=== PATIENT | male | born 1960 | race Caucasian/White ===

== ENCOUNTER → 2022-02-05 13:21 | Outpatient (CLI) | payer MEDICARE, OTHER, SELFPAY ==
--- NOTE | 2022-02-05 | CA_ITS ---
APPROVED REPORT EXAM: Comprehensive 2D, Doppler, and color-flow Echocardiogram Vamp Marker: Soheila Enriquez RT(R) Ht: 5 ft 5 in Wt: 370lbs BSA: 2.57 BP: 150/68 mmHg Indications: SOA, AFIB, CP, Obesity, edema, HTN, DM, fatigue, hyperlipidemia, ex smoker 2D Dimensions LVOT 2.42 cm (M/F) 1.5-2.5 LA Volume 107.80 mL LA Volume Index 41.94 mL/m2 (M/F) 16-34 M-Mode Dimensions RVDd 3.49 cm (0.9-2.6) LA Diam 6.22 cm (1.9-4.0) LVDd 5.21 cm (3.5-5.7) Ao Diam 3.35 cm (2.0-3.7) LVDs 3.79 cm (3.5-5.7) IVSd 0.93 cm (0.6-1.1) PWd 0.74 cm (0.6-1.1) EF (Teich) 52.70% FS 27.30% EDV (Teich) 130.10 mL ESV (Teich) 61.60 mL Aortic Valve AO VTI 64.01 (18-25 cm) Mitral Valve MV PHT 60.00 ms Tricuspid Valve TR P. Velocity 299.00 cm/s RAP Estimate 10.00 mmHg RVSP 45.70 mmHg Left Ventricle Left atrium is moderately enlarged, left ventricle is normal size mild concentric left ventricular hypertrophy, estimated ejection fraction 55% with no regional wall motion abnormality, diastolic parameters are inconclusive. Right Ventricle Right atrium and right ventricle are mildly enlarged with normal contractility. Aortic Valve Aortic valve is minimally thickened and calcified without aortic stenosis or aortic insufficiency. Mitral Valve Mitral valve has mitral annular calcification, there is no mitral stenosis, there is mild mitral regurgitation. Tricuspid Valve Tricuspid valve grossly normal, there is mild tricuspid regurgitation, tricuspid regurgitation jet velocity is inadequate for calculation of the right ventricular systolic pressure. Pulmonic Valve Pulmonic valve is poorly visualized. Great Vessels Aortic root is normal size. Inferior vena cava is poorly visualized. Pericardium No significant pericardial effusion noted. Conclusion 1. Moderately enlarged left atrium, normal left ventricular size, mild concentric left ventricular hypertrophy, estimated ejection fraction 55% with no regional wall motion abnormality, diastolic parameters are inconclusive. 2. Mildly enlarged right ventricle with normal contractility. 3. Mild mitral and tricuspid regurgitation. 4. No significant pericardial effusion noted. 5. Inferior vena cava is poorly visualized Electronically signed by : Ry Yung MD 02/06/2022 12:46:47
== END ==
PROVIDERS: PCP Internal Medicine Adolescent Medicine; Visit Provider Nurse Practitioner Family
DX: R06.02 Shortness of breath (principal)
CPT/HCPCS: 93306

== ENCOUNTER → 2022-02-27 06:51 | Outpatient (CLI) | payer MEDICARE, OTHER, SELFPAY ==
--- NOTE | 2022-02-27 06:52 | NM_ITS ---
APPROVED REPORT Exam: Nuclear Stress Test Indication: OBESITY, HTN, SOB, FATIGUE,EDEMA, C.P., ABN EKG Patient Location: Outpatient Stress Tech: Vianney JACKSON Tech:Yenny Vargas, JENNIFERT RT(R)(N) Ht: 5 ft 5 in Wt: 368 lbs HR: 51 bpm BP: 155/82 mmHg BSA: 2.56 m2 TID: 1.22 BMI: 61.2 History: OBESITY, HTN, SOB, FATIGUE,EDEMA, C.P., ABN EKG PT COULD NOT LAY ON STOMACH FOR PRONE IMAGES Procedure: Patient received a 0.4 mg of intravenous Lexiscan, resting heart rate 51 bpm, resting blood pressure 155/82 mmHg, with Lexiscan maximum heart rate achived was 62 bpm which is Less than 85 % of the maximum predicted heart rate and blood pressure was 130/59 mmHg. With Lexiscan, patient denied any complaint of chest pain. Electrocardiogram Resting electrocardiogram shows sinus rhythm nonspecific ST-T changes, with Lexiscan there is less than 1.[address] segment depression noted from the baseline EKG. The EKG portion of the Lexiscan is nondiagnostic. Cardiac Stress and Resting SPECT Images: Cardiac Stress and Resting SPECT images were obtained using technetium 99m Myoview 29.7 mCi stress and 10.67 mCi at rest. Gated SPECT analysis of segmental wall motion and calculation of the ejection fraction also done. Prone images were not obtained. Cardiac stress and rest SPECT images show uniform myocardial activity without segmental perfusion abnormality, computer derived ejection fraction is 52% with no regional wall motion abnormality, right ventricle is mildly enlarged with normal contractility. Conclusion: 1. The EKG portion of the Lexiscan is nondiagnostic. 2. No scintigraphic evidence of reversible ischemia seen, computer derived ejection fraction 52% with no regional wall motion abnormality, right ventricle is mildly enlarged with normal contractility. 3. Normal Lexiscan Myoview study. Electronically signed by : Ry Yung MD 02/27/2022 14:12:02
--- NOTE | 2022-02-27 06:52 | CA_ITS ---
APPROVED REPORT Exam: Pharmacologic Technologist: Vianney Berman, Ht: 4 ft 7 in Wt: 368 lbs BSA: 2.27 m2 HR: 51 bpm BP: 155/82 mmHg Medical History Medications: Levothyroxine,,,,, Metoprolol Tartrate,,,,, Pantoprazole,,,,, TAMSULOSIN,,,,, Vit C,,,,, ElIQUIS,,,,, AtorvaASTATIN,,,,, Potassium,,,,, Vit D2,,,,, Furosemide,,,,, Ferrous fumarate,,,,, Cardiac Risk Factors: FHX of CAD, Smoking Stress Test Details Test: LEXISCAN HR Resting HR: 51 bpm Max Heart Rate (APMHR): 159.365468 bpm Max HR Achieved: 80 bpm Target HR (85% APMHR): 135.804403 bpm % of APMHR: 50.31 Recovery HR: 62 bpm BP Resting BP: 155/82 mmHg Max BP: 155/82 mmHg Recovery BP: 130.0/59.0 mmHg ECG Clinical Exercise duration: 04:13 min Highest Stage Achieved: Stress ECG Conclusion During lexiscan pt experinced SOA. Occasional PAC/PVC. <1.5mm ST changes. Test Summary RECOVERY 02:00 . . 46 . . . . REST 06:41 . . 51 . 155/ 82 . . Stage 1 01:00 . . 60 . . . . Stage 2 01:00 . . 67 . . . . Stage 3 01:00 . . 46 . 138/ 59 . . Stage 4 01:00 . . 58 . . . . Stage 4 01:13 . . 50 . 136/ 61 . Stop exercise at 04:13 RECOVERY 01:00 . . 62 . . . . RECOVERY 02:00 . . 46 . . . . RECOVERY 03:00 . . 46 . 130/ 59 . . RECOVERY 03:33 . . 57 . 121/ 58 . . Electronically signed by : Ry Yung MD 02/27/2022 09:38:43
== END ==
PROVIDERS: PCP Internal Medicine Adolescent Medicine; Visit Provider Nurse Practitioner
DX: R06.00 Dyspnea, unspecified (principal); R07.89 Other chest pain; K21.9 Gastro-esophageal reflux disease without esophagitis; R94.31 Abnormal electrocardiogram [ECG] [EKG]; Z86.79 Personal history of other diseases of the circulatory system
CPT/HCPCS: 78452; 93017; A9502; J2785

== ENCOUNTER → 2022-03-05 14:28 | Outpatient (CLI) | payer MEDICARE, OTHER, SELFPAY ==
[2022-03-05 17:46] LABS: Alanine Aminotransferase 22 U/L (12-78); Alkaline Phosphatase 129 U/L (38-126); Anion Gap 14.1 mEq/L (5-15); Aspartate Amino Transferase 29 U/L (17-59); Bilirubin,Indirect 0.6 mg/dL (0.0-0.9); Bilirubin,Total 0.6 mg/dl (0.2-1.3); Bilirubin,Unconjugated 0.6 mg/dL (0.0-1.1); Blood Urea Nitrogen 32 mg/dl (9-20); Carbon Dioxide 30 mmol/L (22.0-30.0); Chloride 100 mmol/L (98-107); Chol/HDL Ratio 2.7 (1-3.5); Cholesterol 140 mg/dl (140-200); Estimated Glomerular Filt Rate 68 ml/min (>60); GFR (African American) 82 ML/MIN (>60); Glucose 131 mg/dl (74-100); HDL Cholesterol 52 mg/dl (40-60); Potassium 5.1 mmoL/L (3.5-5.1); Sodium 139 mmol/L (136-145); Total Protein,Serum 6.9 g/dl (6.3-8.2); Triglycerides 96 mg/dl (30-150); VLDL Cholesterol 19 mg/dL (0-40)
[2022-03-05 17:57] LABS: Direct LDL Cholesterol 70.97 mg/dL (100-129)
== END ==
PROVIDERS: PCP Internal Medicine Adolescent Medicine; Visit Provider Nurse Practitioner
DX: R06.00 Dyspnea, unspecified (principal); R60.0 Localized edema; R94.31 Abnormal electrocardiogram [ECG] [EKG]; K21.9 Gastro-esophageal reflux disease without esophagitis; Z86.79 Personal history of other diseases of the circulatory system; Z79.899 Other long term (current) drug therapy
CPT/HCPCS: 36415; 80048; 80061; 80076

== ENCOUNTER 2022-04-22 10:00 | Outpatient (RCR) | payer MEDICARE, OTHER, SELFPAY ==
--- NOTE | 2022-02-05 15:36 | HMH.PTOPWND ---
Rehab Outpt Wound Evaluation Rehab OP Wound Evaluation Start: 02/05/22 15:04 Freq: Status: Active Protocol: Document 02/05/22 15:30 KURT (Rec: 02/05/22 15:35 PHORNE [id number]) E-signed By Segun Barakat, PT Subjective/History History History Pt presents with c/o B LE edema for > 10 yrs, worse x ~ 1 yr, and worse in L LE than R . He reports no c/o pain, but intermittent numbness in B LE with prolonged sitting. He reports hx of DM-II and a-fib. Subjective Subjective Pt 1/4 tenderness to B LE in gaitor area. 2+ pitting edema overlying mild/moderate fibrotic edema noted to B lower legs. Lymphedema Eval Classification of Lymphedema Secondary Lymphedema Yes Stemmer's sign Stemmer's Sign no Stage of Lymphedema Lymphedema stages Stage II (Pitting edema, increased fibrosis w/ decreased pitting) Skin Changes Dry Skin Yes Skin Folds Yes Redness Yes Discoloration of Skin Yes Other Changes Yes Pain Scale Pain Scale (0-10) 0 Affected Extremities Areas Affected by Lymphedema/Edema Right Lower Extremity,Left Lower Extremity Manual Lymphatic Drainage Treatment Area MLD Treatment Area Right Lower Extremity,Left Lower Extremity Wound Problems/Impairments Impairments Problems/Impairmments Palpation Tenderness,Impaired Endurance,Impaired Gait Pattern,Impaired Walking, Impaired Standing,Impaired Sitting,Impaired Stepping on Uneven Surface,Impaired Recreational Activities, Increased Edema,Lymphedema Present,Subjective C/O Pain, Impaired Self Care/Self Management Prognosis Rehab Potential Good Clinical Impression Consistent with Diagnosis Yes Short Term Goals Number of Weeks 2 Decreased Palpation Tenderness Yes: 0/4 Decrease Edema Yes Patient to Understand Lymphedema Yes Treatment and Exercises Senior Care Goals Number of Weeks 4 Decrease Lymphedema Yes Patient to be Ind w/ HEP
--- NOTE | 2022-03-03 15:28 | HMH.RHREAS ---
Rehab Reassessment Rehab OP Re-assessment Start: 03/03/22 15:23 Freq: Status: Active Protocol: Document 03/03/22 15:24 KURT (Rec: 03/03/22 15:28 PHOJOSE [id number]) E-signed By Segun Barakat, PT Rehab Re-assessment Subjective Subjective Pt continues to have no reports of pain, but feels his legs remain heavy. Objective Objective Notes Palpation tenderness: 0/4 in B LE this date. Edema: L LE worse than R LE. Mildly fibrotic edema remains in posterior calf B. 1+ pitting edema in B lower legs otherwise. Assessment Progress Assessment Progressing as Expected Assessment Notes Pt has shown significant improvement in palpation tenderness to this point. Edema is decreasing overall, but remains fibrotic in dependent areas. Especially fibrotic in dependent areas of the L LE. Patient goals met ST,2,3 Goals Not Met LT,2,3,4 Revised Goals none Plan Plan Continue per initial POC. Frequency of Therapy 2 x/wk Duration of therapy 4 wks. Time and Billing Re-Eval Time 14 Re-Eval Billing Units 1 PHYSICIAN CERTIFICATION: I certify the specified therapy services for Richard Haas are required, authorized, and reviewed every 30 days.
--- NOTE | 2022-03-31 16:17 | HMH.RHREAS ---
Rehab Reassessment Rehab OP Re-assessment Start: 03/03/22 15:23 Freq: Status: Active Protocol: Document 03/31/22 16:14 PHORWU (Rec: 03/31/22 16:17 PHORNE [id number]) E-signed By Segun Barakat, PT Rehab Re-assessment Subjective Subjective Pt reports no c/o pain in B LE this date, 0/10. I feel like they aren't as sore, that's for sure. Objective Objective Notes Palpation tenderness: 0/4 in B LE this date. Edema: no pitting edema noted to either LE this date. Mildly fibrotic edema remains on medial/posterior L calf only at this time. Skin remains slightly dry overall. Assessment Progress Assessment Progressing as Expected Assessment Notes Pt has significantly improved overall edema in B LE. L LE remains slightly more edematous than R. No significant erythema noted to either LE and much improved tenderness to palpation again noted. Patient goals met ST,2,3 Goals Not Met LT,2,3,4 Revised Goals none Plan Plan Continue per initial POC. Frequency of Therapy 2 x/wk Duration of therapy 4 wks. Time and Billing Re-Eval Time 15 Re-Eval Billing Units 1 PHYSICIAN CERTIFICATION: I certify the specified therapy services for Richard Haas are required, authorized, and reviewed every 30 days.
== END 2022-04-22 10:05 | disposition home or self-care (01) ==
LOC: PT 10:00
PROVIDERS: PCP Family Medicine; Visit Provider Nurse Practitioner Family
DX: I89.0 Lymphedema, not elsewhere classified (principal)
CPT/HCPCS: 97140; 97162; 97164; 97760

== ENCOUNTER 2022-10-29 10:00 | Outpatient (RCR) | payer MEDICARE, OTHER, SELFPAY ==
--- NOTE | 2022-10-01 10:45 | HMH.OTOPEV ---
OT Inpatient Evaluation Rehab OT Outpatient Eval Start: 10/01/22 10:37 Freq: Status: Active Protocol: Document 10/01/22 10:38 RMARSHALL (Rec: 10/01/22 10[id number] E-signed By Kailey Meza, OT Outpatient Therapy Subjective History Subjective History Pt is a 62 year old male who reports to therapy for initial evaluation to left shoulder. Pt's left shoulder began hurting him ~3-4 months ago and does not recall a specific injury causing pain to start. Pt is now having difficulty completing every day tasks such as dressing due to limited motion. Pt's pain is on posterior shoulder ( shoulder blade) and radiates down to elbow. Pt does demonstrate with decreased AROM and strength at left shoulder. Pt will continue to be seen twice a week in order to address all deficits. Chief Complaint Pain,Stiff,Weakness Symptom Type Ache,Throb,Dull Symptoms Relieved By Rest/Positioning Symptoms Aggravated By Physical Activity,Lifting Prior Functional Limitations None Current Functional Limitations Reaching,Lifting,Housework, Dressing,Sleeping,Recreation Activity Symptom Description Constant but Variable Level of pain today (0-10) 2 Pain scale - at its best (0-10) 2 Pain scale - at its worst (0-10) 6 Shoulder/Elbow Eval Shoulder Objective Measurements Shoulder ROM Left Shoulder Abduction Active Range of 105 degrees Motion (degrees) Shoulder Flexion Active Range of Motion 105 degrees (degrees) Query Text: Shoulder External Rotation Active Range 55 degrees of Motion (degrees) Shoulder Internal Rotation Active Range 65 degrees of Motion (degrees) pain with active ROM shoulder exam left standard pain with passive ROM shoulder exam left standard decreased ROM shoulder exam standard left Shoulder MMT Shoulder Abduction Strength Grade 3 Fair Shoulder Extension Strength Grade 3 Fair Shoulder Flexion Strength Grade 3 Fair Shoulder External Rotation Strength 3 Fair Grade Shoulder Internal Rotation Strength 3 Fair Grade
--- NOTE | 2022-10-29 10:55 | HMH.RHREAS ---
Rehab Reassessment Rehab OP Re-assessment Start: 10/29/22 10:02 Freq: Status: Active Protocol: Document 10/29/22 10:02 DAVID (Rec: 10/29/22 10:55 DAVID [id number]) E-signed By Kailey Meza OT Rehab Re-assessment Subjective Subjective It is still hurting pretty bad. Objective Objective Notes Pt continues to be seen twice a week in order to address left shoulder deficits. Each session, pt engages in L shoulder AROM, AAROM, and strengthening exercises. Pt also receives PROM manual stretching to left shoulder in flexion, abduction, ER, and IR. Modalities are provided in order to decrease pain/ inflammation. Assessment Progress Assessment Slower Than Expected Assessment Notes Pt continues to report his worst pain at a 6/10 which was the same at initial evaluation. AROM has improved slightly, but is still very limited. Current AROM L shoulder Flex: 128 degrees Abd: 110 degrees ER: 60 degrees IR: 70 degrees Patient goals [address] and 5 Goals Not Met See below Revised Goals ST, 2, and 4 LT-5 Plan Plan Therapist recommeds pt return to doctor for possible ortho referral or further imaging. Hold tx at this time. Time and Billing Re-Eval Time 12 Re-Eval Billing Units 1 PHYSICIAN CERTIFICATION: I certify the specified therapy services for Richard Haas are required, authorized, and reviewed every 30 days.
== END 2022-10-29 10:05 | disposition home or self-care (01) ==
LOC: OT 10:00
PROVIDERS: PCP Internal Medicine Adolescent Medicine; Visit Provider Nurse Practitioner Family
DX: M75.52 Bursitis of left shoulder (principal)
CPT/HCPCS: 97010; 97014; 97110; 97140; 97164; 97166; 97530; G0283

== ENCOUNTER → 2022-12-14 07:10 | Outpatient (CLI) | payer MEDICARE, OTHER, SELFPAY ==
--- NOTE | 2022-12-14 07:39 | MR_ITS ---
FINAL REPORT CLINICAL HISTORY: PAIN IN LEFT SHOULDER. limited rom. weakness. no injury or trauma. COMPARISON: None FINDINGS: Multiplanar MR imaging of the left shoulder was performed without contrast. The study is markedly limited by both motion and patient's body habitus. The tendons of the rotator cuff are intact without evidence of rotator cuff tear. There is mild degenerative change of the acromioclavicular joint. A small amount of fluid is present in the subacromial bursa. The glenoid labrum appears intact although not well seen The long head of the biceps tendon is intact. A small glenohumeral joint effusion is seen. There is no evidence of fracture or dislocation. The musculature is intact. There is no evidence of soft tissue mass. IMPRESSION: Exam markedly limited secondary to both motion artifact and patient body habitus. Mild acromioclavicular degenerative change, and small amounts of fluid in the subacromial subdeltoid bursa and glenohumeral joint. Reviewed, Interpreted and Dictated by Jose Hernandez III, MD Transcribed by Awa Monson Authenticated and [facility]
== END ==
PROVIDERS: PCP Internal Medicine Adolescent Medicine; Visit Provider Nurse Practitioner Family
DX: M25.512 Pain in left shoulder (principal); G89.29 Other chronic pain
CPT/HCPCS: 73221

== ENCOUNTER → 2023-02-25 13:50 | Outpatient (CLI) | payer MEDICARE, OTHER, SELFPAY ==
[2023-02-25 14:47] LABS: Basophils % 0.4 % (0.1-2.0); Eosinophils # 0.1 K/mm3 (0.0-0.4); Eosinophils % 1.1 % (0.1-12.0); Hematocrit 47.9 % (42.0-52.0); Lymphocytes % 20.4 % (10-50); Mean Corpuscular HGB Conc 31.3 g/dL (31.8-35.4); Mean Corpuscular Hemoglobin 25.7 pg (27.0-31.2); Mean Corpuscular Volume 82.2 fl (80-94); Mean Platelet Volume 7.9 fl (7.4-10.4); Monocytes # 0.6 K/mm3 (0.1-1.0); Monocytes % 6.3 % (1.7-9.3); Neutrophils % 71.8 % (37.0-80.0); Platelet Count 221 K/mm3 (142-424); Red Blood Count 5.82 M/mm3 (4.60-6.20); Red Cell Distribution Width 15.6 % (11.5-17.5); White Blood Count 9.7 K/mm3 (4.8-10.8)
[2023-02-25 15:14] LABS: Chloride 106 mmol/L (98-107)
[2023-02-25 15:15] LABS: Potassium 4.4 mmoL/L (3.5-5.1); Sodium 140 mmol/L (136-145)
[2023-02-25 15:17] LABS: Alanine Aminotransferase 30 U/L (12-78); Alkaline Phosphatase 142 U/L (38-126); Anion Gap 11.4 mEq/L (5-15); Aspartate Amino Transferase 26 U/L (17-59); Bilirubin,Direct 0.3 mg/dl (0.0-0.4); Bilirubin,Indirect 0.5 mg/dL (0.0-0.9); Bilirubin,Total 0.8 mg/dl (0.2-1.3); Bilirubin,Unconjugated 0.5 mg/dL (0.0-1.1); Blood Urea Nitrogen 21 mg/dl (9-20); Carbon Dioxide 27 mmol/L (22.0-30.0); Cholesterol 120 mg/dl (140-200); Estimated Glomerular Filt Rate 76 ml/min (>60); GFR (African American) 92 ML/MIN (>60); Triglycerides 108 mg/dl (30-150); VLDL Cholesterol 22 mg/dL (0-40)
[2023-02-25 15:18] LABS: Albumin Level 3.7 g/dl (3.5-5.0); Calcium 8.6 mg/dl (8.4-10.2); Chol/HDL Ratio 2.6 (1-3.5); Glucose 120 mg/dl (74-100); HDL Cholesterol 46 mg/dl (40-60); Total Protein,Serum 6.4 g/dl (6.3-8.2)
[2023-02-25 15:29] LABS: Direct LDL Cholesterol 56.21 mg/dL (100-129)
[2023-02-25 15:35] LABS: Free T4 (Free Thyroxine) 2.18 ng/dl (0.78-2.19)
[2023-02-25 15:49] LABS: Thyroid Stimulating Hormone < 0.02 uIU/mL (0.465-4.68)
== END ==
PROVIDERS: PCP Internal Medicine Adolescent Medicine; Visit Provider Nurse Practitioner
DX: E11.9 Type 2 diabetes mellitus without complications (principal); I48.20 Chronic atrial fibrillation, unspecified; K21.9 Gastro-esophageal reflux disease without esophagitis; R06.00 Dyspnea, unspecified; R60.0 Localized edema; Z86.79 Personal history of other diseases of the circulatory system; I63.9 Cerebral infarction, unspecified; I11.9 Hypertensive heart disease without heart failure
CPT/HCPCS: 36415; 80048; 80061; 80076; 84439; 84443; 85025

== ENCOUNTER 2023-07-22 19:52 | Emergency (ER) | payer MEDICARE, OTHER, SELFPAY ==
[2023-07-22 19:54] VITALS: BP 169/88; PULSE 70; RESP 20; TEMP 36.4; O2SAT 98; BMI 54.2
[2023-07-22 19:58] VITALS: BP 169/88; PULSE 68; O2SAT 99
[2023-07-22 20:00] VITALS: BP 151/104; PULSE 71; O2SAT 96
--- NOTE | 2023-07-22 20:13 | CT_ITS ---
PROCEDURE INFORMATION: Exam: CT Left Upper Extremity With Contrast, Hand Exam date and time: 07/22/2023 9:33 PM Age: 63 years old Clinical indication: Pain; Hand; Left; Additional info: Dig bite first and third mcp days ago, swelling TECHNIQUE: Imaging protocol: Computed tomography of the left upper extremity with contrast. Exam focused on the hand. Radiation optimization: All CT scans at this facility use at least one of these dose optimization techniques: automated exposure control; mA and/or kV adjustment per patient size (includes targeted exams where dose is matched to clinical indication); or iterative reconstruction. Contrast material: ISOVUE; Contrast volume: 75 ml; Contrast route: IV; COMPARISON: No relevant prior studies available. FINDINGS: Bones/joints: Normal. No acute fracture or dislocation. Soft tissues: Subcutaneous edema. No soft tissue air. No soft tissue fluid collection or abscess identified. No radiopaque foreign body identified. IMPRESSION: 1. Subcutaneous edema. 2. No acute osseous findings identified.
[2023-07-22 20:29] LABS: Basophils % 0.2 % (0.1-2.0); Eosinophils # 0.2 K/mm3 (0.0-0.4); Eosinophils % 1.7 % (0.1-12.0); Hematocrit 45.7 % (42.0-52.0); Hemoglobin 15.6 g/dL (14.1-18.0); Lymphocytes # 2.2 K/mm3 (0.7-4.5); Lymphocytes % 21.5 % (10-50); Mean Corpuscular HGB Conc 34.2 g/dL (31.8-35.4); Mean Corpuscular Hemoglobin 28.7 pg (27.0-31.2); Mean Platelet Volume 7.7 fl (7.4-10.4); Monocytes # 0.4 K/mm3 (0.1-1.0); Monocytes % 4.2 % (1.7-9.3); Neutrophils # 7.5 K/mm3 (1.8-7.8); Neutrophils % 72.4 % (37.0-80.0); Platelet Count 209 K/mm3 (142-424); Red Blood Count 5.44 M/mm3 (4.60-6.20); Red Cell Distribution Width 15.9 % (11.5-17.5); White Blood Count 10.4 K/mm3 (4.8-10.8)
--- NOTE | 2023-07-22 20:31 | ED_ITS ---
Discharge Plan Disposition Patient Disposition: Home, Self-Care Chief Complaint: Animal Bite Prescriptions Prescriptions: No Action atorvastatin 10 mg tablet 10 mg PO DAILY metoprolol tartrate 100 mg tablet 100 mg PO BID pantoprazole 20 mg tablet,delayed release (DR/EC) 20 mg PO DAILY tamsulosin 0.4 mg capsule 0.4 mg PO DAILY ascorbic acid (vitamin C) 250 mg tablet 250 mg PO DAILY ergocalciferol (vitamin D2) [Vitamin D2] 1,250 mcg (50,000 unit) capsule 1,250 mcg PO WEEKLY potassium chloride 10 mEq tablet,ER particles/crystals 10 meq PO DAILY ferrous fumarate 325 mg (106 mg iron) tablet 325 mg PO DAILY Eliquis 5 mg tablet 5 mg PO BID levothyroxine 50 mcg tablet 50 mcg PO DAILY Ozempic 0.25 mg or 0.5 mg(2 mg/1.5 mL) pen injector 0.25 mg SQ WEEKLY Rx Instructions: per md order furosemide 20 mg tablet 20 mg PO DAILY spironolactone 25 mg tablet See Rx Instructions .ROUTE .COMPLEX Qty: 30 4RF Dose Instruction: TAKE 1 TABLET BY MOUTH ONCE DAILY Rx Instructions: TAKE 1 TABLET BY MOUTH ONCE DAILY Referrals Follow up/Referrals: Armen Holder MD [Primary Care Provider] - See instructions Activity Restrictions/Add. Instructions Additional Instructions/Restrictions: Continue taking Augmentin as prescribed. Call your family doctor to establish care for this visit to the emergency department and schedule follow-up within 48 hours to ensure improvement. If you have any worsening of your condition or any other concerning signs or symptoms, return to the emergency department or your primary care doctor for further evaluation. Clinical Impressions Clinical Impression: Cellulitis of finger of left hand Dog bite of left hand Qualifiers: Encounter type: initial encounter Qualified Code(s): S61.452A - Open bite of left hand, initial encounter Instructions Patient Instructions: Animal Bites Discharge ED Provider: Harris Narvaez General Adult HPI General Chief complaint: Animal Bite Stated complaint: dog bite LT hand redness swollen Time Seen by Provider: 07/22/23 19:55 Mode of Arrival: Ambulatory Source of Information: Patient Limitations: No Limitations Description of Symptoms (Recalled from ER Triage Doc. by RN): Patient was bitten by his Paz Sergey on his left hand on 07/20/2023. He was seen by his PCP earlier today and his hand was marked where his redness was and started on PO ABX, he has had 2 doses. History of Present Illness HPI narrative: 63-year-old male history of hypertension, A-fib on Eliquis presenting with dog bite to his left hand. Patient states that he got bit 2 days prior to this visit. Last tetanus was just a couple months ago. Was given antibiotics at that time, Augmentin he thinks,, but it has expanded outside of the line that was drawn on his hand since that time. Denies fevers or chills, nausea or vomiting, swelling in his armpit, or any other concerns. Able to move hand, but range of motion limited secondary to swelling. Overall, minimal pain Related Data Home Medications Medication Instructions Recorded Confirmed apixaban 5 mg tablet (Eliquis) 5 mg PO BID 02/19/22 07/22/23 ascorbic acid (vitamin C) 250 mg 250 mg PO DAILY 02/19/22 07/22/23 tablet atorvastatin 10 mg tablet 10 mg PO DAILY 02/19/22 07/22/23 ergocalciferol (vitamin D2) 1,250 1,250 mcg PO WEEKLY 02/19/22 07/22/23 mcg (50,000 unit) capsule (Vitamin D2) ferrous fumarate 325 mg (106 mg 325 mg PO DAILY 02/19/22 07/22/23 iron) tablet metoprolol tartrate 100 mg tablet 100 mg PO BID 02/19/22 07/22/23 pantoprazole 20 mg tablet,delayed 20 mg PO DAILY 02/19/22 07/22/23 release potassium chloride 10 mEq 10 meq PO DAILY 02/19/22 07/22/23 tablet,extended release(part/cryst) tamsulosin 0.4 mg capsule 0.4 mg PO DAILY 02/19/22 07/22/23 furosemide 20 mg tablet 20 mg PO DAILY 08/25/22 07/22/23 levothyroxine 50 mcg tablet 50 mcg PO DAILY 08/25/22 07/22/23 semaglutide 0.25 mg or 0.5 mg (2 0.25 mg SQ WEEKLY 08/25/22 07/22/23 mg/1.5 mL) subcutaneous pen injector (Ozempic) Previous Rx's Medication Instructions Recorded spironolactone 25 mg tablet See Rx Instructions .Route 02/17/23 .COMPLEX #30 tabs Allergies Allergy/AdvReac Type Severity Reaction Status Date / Time No Known Allergies Allergy Verified 02/25/23 13:32 [facility] Disclaimer: The information contained in this section may have been updated after the patient was seen, as this information can be updated by other users. Medical History Abnormal electrocardiogram [ECG] [EKG] Chronic a-fib GERD (gastroesophageal reflux disease) History of atrial fibrillation Surgical History H/O gastric bypass Hx of total knee arthroplasty Family History Mother Diabetes Hypertension Father Heart attack Social History Smoking Status: Never smoker smoking status stop date: 2010 alcohol intake: never current occupational status: retired Travel in the last 8 weeks: Inside the [facility] ROS Obtained: Yes All systems reviewed & no additional complaints except as documented Physical Exam General General appearance: alert and in no apparent distress Head Head exam: atraumatic and normocephalic Eye Eye exam: Present normal appearance, PERRL and EOMI ENT ENT exam: Present mucous membranes moist Neck Neck exam: Present normal inspection, full ROM and trachea midline Respiratory Respiratory exam: Absent respiratory distress, wheezes, stridor, accessory muscle use or prolonged expiratory phase Cardiovascular Cardiovascular exam: Present normal rhythm Abdominal Exam Abdominal exam: Present soft; Absent distention, tenderness, guarding, rebound or rigidity Extremities Exam Extremities exam: Present other (Swelling, erythema about left hand with puncture wounds at third MCP and first MCP. No obvious palpable foreign bodies. Range of motion intact, neurovascularly intact. EXTR ending up left forearm); Absent edema Neurological Exam Neurological exam: Present alert, oriented X3, CN II-XII intact and normal gait; Absent motor sensory deficit Skin Skin exam: Present warm and dry; Absent diaphoresis or erythema Medical Decision Making Medical Records Medical records reviewed: Yes I reviewed the patient's medical records. Ok Inquiry Pt receiving controlled substance: No Ok was queried for this patient: No Vital Signs: 07/22/23 19:54 07/22/23 19:58 07/22/23 20:00 Temperature 97.6 F Temperature Source Oral Pulse Rate 68 71 Pulse Rate [Radial] 70 Respiratory Rate 20 Blood Pressure 169/88 H 151/104 H Blood Pressure [Right Arm] 169/88 H Blood Pressure Mean [Right Arm] 115 Blood Pressure Source [Right Arm] Automatic Cuff Blood Pressure Position [Right Arm] Sitting 02 Sat by Pulse Oximetry 98 99 96 Oxygen Delivery Method Room Air 07/22/23 21:00 Temperature Temperature Source Pulse Rate 67 Pulse Rate [Radial] Respiratory Rate Blood Pressure 143/88 H Blood Pressure [Right Arm] Blood Pressure Mean [Right Arm] Blood Pressure Source [Right Arm] Blood Pressure Position [Right Arm] 02 Sat by Pulse Oximetry 100 Oxygen Delivery Method Lab Data Lab Results 07/22/23 20:21: WBC 10.4, RBC 5.44, Hgb 15.6, Hct 45.7, MCV 84.0, MCH 28.7, MCHC 34.2, RDW 15.9, Plt Count 209, MPV 7.7, Neut % (Auto) 72.4, Lymph % (Auto) 21.5, [place] % (Auto) 4.2, Eos % (Auto) 1.7, Baso % (Auto) 0.2, Neut # (Auto) 7.5, Lymph # (Auto) 2.2, [place] # (Auto) 0.4, Eos # (Auto) 0.2, Baso # (Auto) 0.0, Sodium 137, Potassium 4.2, Chloride 107, Carbon Dioxide 25, Anion Gap 9.2, BUN 28 H, Creatinine 1.10, Estimated Creat Clear 60, Estimated GFR 68, Est GFR ( Amer) 82, Glucose 114 H, Calcium 8.6, Total Bilirubin 0.9, AST 29, ALT 27, Alkaline Phosphatase 151 H, Total Creatine Kinase 73, Total Protein 7.4, Albumin 4.1, Globulin 3.3 H, Albumin/Globulin Ratio 1.2 07/22/23 20:38: Lactate 1.0 07/22/23 20:21 07/22/23 20:21 Orders (Tests/Meds): ED MEDICATIONS Generic Name Dose Route Start Last Admin Trade Name Freq PRN Reason Stop Dose Admin Sodium Chloride 10 ml 07/22/23 21:36 07/22/23 21:37 Sodium Chloride 0.9% 10ml Syr (Rad Only) IV 08/21/23 21:35 10 ml NEEDED PRN Administration Maintain IV Site Discontinued Medications Generic Name Dose Route Start Last Admin Trade Name Freq PRN Reason Stop Dose Admin Ampicillin Sodium/Sulbactam 100 mls @ 200 mls/hr 07/22/23 20:20 07/22/23 20:47 Sodium 3 gm/ Sodium Chloride IV 07/22/23 20:21 200 mls/hr ONCE ONE Administration Iopamidol 75 ml 07/22/23 21:36 07/22/23 21:37 Iopamidol-370 (76%);100ml Bottle IV 07/22/23 21:37 75 ml ONCE ONE Administration ORDERS Category Date Time Status CT hand LT w con Stat Cat Scan 07/22/23 20:13 Completed CBC w/Auto Diff [Complete Blood Count Auto Diff] Stat Lab 07/22/23 20:21 Completed CK [Creatine Kinase] Stat Lab 07/22/23 20:21 Completed CMP [Comprehensive Metabolic Panel] Stat Lab 07/22/23 20:21 Completed Lactic Acid Stat Lab 07/22/23 20:38 Completed Medical Decision Narrative: 63-year-old male history of hypertension, A-fib on Eliquis presenting with dog bite to his left hand. Patient states that he got bit 2 days prior to this visit. Last tetanus was just a couple months ago. Was given antibiotics at that time, Augmentin he thinks,, but it has expanded outside of the line that was drawn on his hand since that time. Denies fevers or chills, nausea or vomiting, swelling in his armpit, or any other concerns. Able to move hand, but range of motion limited secondary to swelling. Overall, minimal elisa. History was obtained via conversation with patient. On arrival, patient hemodynamically stable, alert, oriented x4, appropriate, GCS 15, moving all extremities spontaneously, pupils equal and reactive to light. Full physical exam performed and significant for swelling, erythema, tenderness about left hand. Puncture wounds overlying third MCP and first MCP. No palpable foreign body. Neurovascular intact, range of motion intact, cellulitic changes extending up forearm. Differential includes retained foreign body, deep space infection, abscess, cellulitis, among others. Patient was given 3 g Unasyn IV for symptomatic management and correction of underlying abnormalities. Workup independently interpreted and significant for nonactionable CBC or chemistry. CK negative, lactate negative. CT of the left hand without concern for deep space infection, subcutaneous gas, or abscess. See radiology read for full review of final results. On reevaluation, patient resting comfortably in bed. Further conversation reveals that patient just picked up antibiotics today and is only taken 2 doses, I misunderstood this initially. Given negative results, patient deemed appropriate for outpatient management with close return precautions. He is agreeable to this plan. Given patient presentation, workup, history, this most likely represents cellulitis secondary to dog bite left hand. Because patient at baseline without signs or symptoms of clinical decompensation, deemed appropriate for discharge. Results were relayed to patient who voiced understanding and were agreeable to outpatient management and follow up. At the time of discharge the patient was hemodynamically stable, tolerating PO, and mobilizing appropriately. Critical Care Critical Care Time Critical Care Time: No
[2023-07-22 20:35] LABS: Chloride 107 mmol/L (98-107); Potassium 4.2 mmoL/L (3.5-5.1); Sodium 137 mmol/L (136-145)
[2023-07-22 20:37] LABS: Alanine Aminotransferase 27 U/L (12-78); Alkaline Phosphatase 151 U/L (38-126); Aspartate Amino Transferase 29 U/L (17-59); Bilirubin,Total 0.9 mg/dl (0.2-1.3); Blood Urea Nitrogen 28 mg/dl (9-20); Creatinine Clearance Estimated 60 mL/min (50-200); Estimated Glomerular Filt Rate 68 ml/min (>60); GFR (African American) 82 ML/MIN (>60)
[2023-07-22 20:38] LABS: Albumin Level 4.1 g/dl (3.5-5.0); Albumin/Globulin Ratio 1.2 (1.1-1.8); Anion Gap 9.2 mEq/L (5-15); Calcium 8.6 mg/dl (8.4-10.2); Carbon Dioxide 25 mmol/L (22.0-30.0); Creatine Kinase 73 U/L (55-170); Globulin 3.3 g/dL (1.3-3.2); Glucose 114 mg/dl (74-100); Total Protein,Serum 7.4 g/dl (6.3-8.2)
[2023-07-22] MEDS: AMPICILLIN/SULBACTAM 3 GM in 0.9 % SODIUM CHLORIDE 100 ML IV (20:47)
[2023-07-22 21:00] VITALS: BP 143/88; PULSE 67; O2SAT 100
[2023-07-22] MEDS: IOPAMIDOL-370 (76%);100ML BOTTLE 75 ML IV (21:37)
[2023-07-22] MEDS: SODIUM CHLORIDE 0.9% 10ML SYR (RAD ONLY) 10 ML IV (21:37)
--- NOTE | 2023-07-22 21:38 | PC.NURSE ---
pt. back from radiology
[2023-07-22 22:40] VITALS: BP 138/76; PULSE 60; RESP 18; TEMP 36.7; O2SAT 99
== END 2023-07-22 22:43 | disposition home or self-care (01) ==
PROVIDERS: Emergency Provider Emergency Medicine; PCP Internal Medicine Adolescent Medicine
DX: L03.012 Cellulitis of left finger (principal); S61.452A Open bite of left hand, initial encounter; I48.0 Paroxysmal atrial fibrillation; I10 Essential (primary) hypertension; K21.9 Gastro-esophageal reflux disease without esophagitis; Z79.01 Long term (current) use of anticoagulants; W54.0XXA Bitten by dog, initial encounter
CPT/HCPCS: 73201; 80053; 82550; 83605; 85025; 96365; 99284; Q9967

== ENCOUNTER 2024-01-29 13:58 | Emergency (ER) | payer MEDICARE, OTHER, SELFPAY ==
[2024-01-29 13:59] VITALS: BP 124/76; PULSE 88; RESP 16; TEMP 36.6; O2SAT 97; BMI 49.9
[2024-01-29 14:04] VITALS: BP 124/76; PULSE 74; O2SAT 97
[2024-01-29 14:31] VITALS: BP 118/59; PULSE 65; O2SAT 97
--- NOTE | 2024-01-29 14:50 | XR_ITS ---
PROCEDURE INFORMATION: Exam: XR Left Tibia and Fibula Exam date and time: 01/29/2024 2:54 PM Age: 63 years old Clinical indication: Swelling, leg or foot; Additional info: Left lower extremity swelling TECHNIQUE: Imaging protocol: Radiologic exam of the left tibia and fibula. Views: 2 views. COMPARISON: No relevant prior studies available. FINDINGS: Bones/joints: The left tibia and fibula are intact. No destructive bone lesion. There is normal alignment of the left knee and ankle. There is a small calcaneal bone spur. Soft tissues: There is soft tissue swelling of the left lower leg. There are numerous phleboliths in the soft tissues suggesting chronic venous incompetence. No gas in the soft tissues. IMPRESSION: 1. The left tibia and fibula are intact. 2. Soft tissue swelling of the left lower leg and multiple phleboliths suggesting chronic venous incompetence/reflux.
--- NOTE | 2024-01-29 14:54 | HMH.EDGENADL ---
Discharge Plan Disposition Patient Disposition: Home, Self-Care Condition: Good Prescriptions Prescriptions: No Action atorvastatin 10 mg tablet 10 mg PO DAILY metoprolol tartrate 100 mg tablet 100 mg PO BID pantoprazole 20 mg tablet,delayed release (DR/EC) 20 mg PO DAILY potassium chloride 10 mEq tablet,ER particles/crystals 10 meq PO DAILY Eliquis 5 mg tablet 5 mg PO BID cetirizine 10 mg tablet 10 mg PO DAILY Patient Comments: TAKE 1 TABLET BY MOUTH ONCE DAILY fluticasone propionate 50 mcg/actuation spray,suspension 1 spray intranasal DAILY Ozempic 1 mg/dose (4 mg/3 mL) pen injector SQ levothyroxine 50 mcg tablet 50 mcg PO DAILY furosemide 20 mg tablet 20 mg PO DAILY spironolactone 25 mg tablet See Rx Instructions .ROUTE .COMPLEX Qty: 90 1RF Dose Instruction: TAKE 1 TABLET BY MOUTH ONCE DAILY Rx Instructions: TAKE 1 TABLET BY MOUTH ONCE DAILY Referrals Follow up/Referrals: Armen Holder MD [Primary Care Provider] - See instructions Activity Restrictions/Add. Instructions Additional Instructions/Restrictions: Please follow-up with Dr. Holder your primary care provider early next week, tell him that you received a dose of IV Dalvance as well as IV Lasix in the emergency department for lower extremity swelling and cellulitis. Please return to the emergency department if you experience any worsening signs or symptoms, or expansion of your cellulitis/redness extends past marked area. Clinical Impressions Clinical Impression: Cellulitis of left leg, Edema of both lower extremities Instructions Patient Instructions: Cellulitis, DI for Peripheral Edema -- Bilateral Print Language Print Language: Albanian Discharge ED Provider: Harris Narvaez General Adult HPI <KATHLEEN Andrade - Last Filed: 01/29/24 17:13> General Chief complaint: Skin/Abscess/Foreign Body Stated complaint: Left leg swelling/redness/pain Time Seen by Provider: 01/29/24 14:39 Mode of Arrival: Ambulatory Source of Information: Patient Limitations: No Limitations Description of Symptoms (Recalled from ER Triage Doc. by RN): Patient complaint of left leg swelling and redness since Wednesday. History of Present Illness HPI narrative: 63-year-old male presents to the emergency department with a 4 to 5-day history of left lower extremity pain redness swelling, and most recently difficulty ambulating with the last several days, he states he has had prior history of cellulitis in his leg that required oral antibiotics. He tells me he has been using compression stockings . But he believes this has made it worse. He has data deficient history of lymphedema/peripheral artery disease. He denies any definitive fever or chills, but does admit to some subjective fever or chills he has not actually obtained an accurate temperature. He just feels like he is chilling , he denies any chest pain shortness of breath, denies any abdominal pain, nausea, vomiting, change in bowel habits, no constipation, no diarrhea, no upper or lower extremity weakness, he is unable to ambulate unassisted but states there is pain. He denies any other acute symptom pathology, he has past medical history consistent with nonvalvular atrial fibrillation, on current coagulation therapy with Eliquis, GERD, hyper lipidemia, hypertension, hypothyroidism, he denies any history of diabetes, he believes he might be prediabetic, he is on Ozempic for what sounds like weight loss. Initial triage vitals are grossly unremarkable, he denies any alcohol, tobacco or drug use. Onset (ago): day(s) Location: lower extremity Associated symptoms: denies other symptoms Related Data Home Medications ?Medication ?Instructions ?Recorded ?Confirmed apixaban 5 mg tablet (Eliquis) 5 mg PO BID 02/19/22 08/26/23 atorvastatin 10 mg tablet 10 mg PO DAILY 02/19/22 08/26/23 metoprolol tartrate 100 mg tablet 100 mg PO BID
--- NOTE | 2024-01-29 14:59 | PC.NURSE ---
XR AT BEDSIDE
[2024-01-29 15:00] LABS: Basophils # 0.1 K/mm3 (0-0.2); Basophils % 0.3 % (0.1-2.0); Eosinophils % 0.1 % (0.1-12.0); Hematocrit 45.9 % (42.0-52.0); Hemoglobin 14.9 g/dL (14.1-18.0); Lymphocytes # 1.3 K/mm3 (0.7-4.5); Lymphocytes % 8.9 % (10-50); Mean Corpuscular HGB Conc 32.4 g/dL (31.8-35.4); Mean Corpuscular Hemoglobin 29.3 pg (27.0-31.2); Mean Corpuscular Volume 90.4 fl (80-94); Mean Platelet Volume 8.7 fl (7.4-10.4); Monocytes # 0.4 K/mm3 (0.1-1.0); Monocytes % 3.1 % (1.7-9.3); Neutrophils # 12.4 K/mm3 (1.8-7.8); Neutrophils % 87.6 % (37.0-80.0); Platelet Count 224 K/mm3 (142-424); Red Blood Count 5.08 M/mm3 (4.60-6.20); Red Cell Distribution Width 15.1 % (11.5-17.5); White Blood Count 14.1 K/mm3 (4.8-10.8)
[2024-01-29 15:01] VITALS: BP 126/83; O2SAT 98
[2024-01-29 15:02] LABS: Albumin Level 3.7 g/dl (3.5-5.0); Chloride 105 mmol/L (98-107); Potassium 4.3 mmoL/L (3.5-5.1); Sodium 133 mmol/L (136-145)
[2024-01-29 15:05] LABS: Alanine Aminotransferase 27 U/L (12-78); Albumin/Globulin Ratio 1.1 (1.1-1.8); Alkaline Phosphatase 108 U/L (38-126); Anion Gap 9.3 mEq/L (5-15); Aspartate Amino Transferase 29 U/L (17-59); Bilirubin,Total 1.6 mg/dl (0.2-1.3); Blood Urea Nitrogen 22 mg/dl (9-20); Calcium 8.6 mg/dl (8.4-10.2); Carbon Dioxide 23 mmol/L (22.0-30.0); Creatinine Clearance Estimated 55 mL/min (50-200); Estimated Glomerular Filt Rate 61 ml/min (>60); GFR (African American) 74 ML/MIN (>60); Globulin 3.4 g/dL (1.3-3.2); Glucose 121 mg/dl (74-100); Total Protein,Serum 7.1 g/dl (6.3-8.2)
[2024-01-29 15:07] LABS: MANUAL DIFFERENTIAL MANUAL DIFFERENTIAL (MANUAL DIFF)
[2024-01-29 15:14] LABS: Lactic Acid 1.7 mmol/L (0.7-2.1)
[2024-01-29 15:15] LABS: NT Pro Brain Natriuretic Pep. 1380 pg/mL (0-125)
[2024-01-29 15:29] LABS: Lymphocytes % 13 % (10-50); Monocytes % 1 % (2-9); Neutrophils % 86 % (42-76); Platelet Estimate Normal; RBC Morphology Normal; Total Cells Counted 100
[2024-01-29 15:31] VITALS: BP 116/61; PULSE 73; RESP 18; O2SAT 99
--- NOTE | 2024-01-29 15:38 | XR_ITS ---
PROCEDURE INFORMATION: Exam: XR Chest Exam date and time: 01/29/2024 3:53 PM Age: 63 years old Clinical indication: Shortness of breath; Additional info: Shortness of air TECHNIQUE: Imaging protocol: Radiologic exam of the chest. Views: 1 view. COMPARISON: SHOULDER LT WO CON 12/14/2022 7:36 AM FINDINGS: Lungs: Unremarkable. No consolidation. Pleural spaces: Unremarkable. No pleural effusion. No pneumothorax. Heart/Mediastinum: Unremarkable. No cardiomegaly. Bones/joints: Unremarkable. IMPRESSION: No acute findings.
--- NOTE | 2024-01-29 15:54 | ECG_ITS ---
APPROVED REPORT Exam: Resting ECG HR:71 bpm ECG Measurements Heart Rate 71 AXES QRSd 94 QRS 68 QT 363 T 6 QTc 385 Conclusion ATRIAL FIBRILLATION ABNORMAL RHYTHM ECG Electronically signed by : EDITA DONG, 01/31/2024 15:11:27
[2024-01-29 17:18] VITALS: BP 120/60; PULSE 70; RESP 18; TEMP 36.6; O2SAT 98
== END 2024-01-29 17:20 | disposition home or self-care (01) ==
PROVIDERS: Physician Assistant; Emergency Provider Emergency Medicine; PCP Internal Medicine Adolescent Medicine
DX: L03.116 Cellulitis of left lower limb (principal); R60.9 Edema, unspecified; I48.20 Chronic atrial fibrillation, unspecified; K21.9 Gastro-esophageal reflux disease without esophagitis
CPT/HCPCS: 71045; 73590; 80053; 83605; 83880; 85007; 85025; 85027; 93005; 96374; 96375; 99285; J0875; J1940; J7060

== ENCOUNTER 2024-02-03 09:25 | Outpatient (CLI) | payer MEDICARE, SELFPAY ==
--- NOTE | 2024-02-03 | CA_ITS ---
FINAL REPORT TECHNIQUE: Ultrasound images of the deep venous system were obtained from the left groin to the calf veins. CLINICAL HISTORY: Left lower extremity swelling and cellulitis FINDINGS: The deep venous system is normally compressible. Normal flow is identified. IMPRESSION: No evidence of left lower extremity DVT. Reviewed, Interpreted and Dictated by Man Long MD Transcribed by Katie Salmon Authenticated and [facility]
[2024-02-03 09:48] LABS: Basophils # 0.1 K/mm3 (0-0.2); Basophils % 1.1 % (0.1-2.0); Eosinophils # 0.1 K/mm3 (0.0-0.4); Eosinophils % 1.2 % (0.1-12.0); Hematocrit 45.3 % (42.0-52.0); Hemoglobin 14.5 g/dL (14.1-18.0); Lymphocytes # 2.7 K/mm3 (0.7-4.5); Lymphocytes % 30.3 % (10-50); Mean Corpuscular HGB Conc 31.9 g/dL (31.8-35.4); Mean Corpuscular Hemoglobin 29.4 pg (27.0-31.2); Mean Corpuscular Volume 92.1 fl (80-94); Mean Platelet Volume 8.4 fl (7.4-10.4); Monocytes # 0.4 K/mm3 (0.1-1.0); Monocytes % 4.7 % (1.7-9.3); Neutrophils # 5.5 K/mm3 (1.8-7.8); Neutrophils % 62.8 % (37.0-80.0); Platelet Count 341 K/mm3 (142-424); Red Blood Count 4.93 M/mm3 (4.60-6.20); Red Cell Distribution Width 14.9 % (11.5-17.5); White Blood Count 8.8 K/mm3 (4.8-10.8)
[2024-02-03 10:49] LABS: Albumin Level 3.7 g/dl (3.5-5.0); Chloride 108 mmol/L (98-107); Sodium 138 mmol/L (136-145)
[2024-02-03 10:52] LABS: Alanine Aminotransferase 30 U/L (12-78); Albumin/Globulin Ratio 1.2 (1.1-1.8); Alkaline Phosphatase 82 U/L (38-126); Aspartate Amino Transferase 44 U/L (17-59); Bilirubin,Total 1.1 mg/dl (0.2-1.3); Blood Urea Nitrogen 24 mg/dl (9-20); Calcium 8.5 mg/dl (8.4-10.2); Carbon Dioxide 24 mmol/L (22.0-30.0); Estimated Glomerular Filt Rate 68 ml/min (>60); GFR (African American) 82 ML/MIN (>60); Globulin 3.2 g/dL (1.3-3.2); Glucose 102 mg/dl (74-100); Total Protein,Serum 6.9 g/dl (6.3-8.2)
[2024-02-03 11:03] LABS: C-Reactive Protein 20.6 mg/L (0-4)
[2024-02-03 11:17] LABS: Erythrocyte Sedimentation Rate 60 mm/hr (0-20)
== END 2024-02-03 23:59 | disposition home or self-care (01) ==
LOC: RT 09:26
PROVIDERS: Nurse Practitioner Family; PCP Internal Medicine Adolescent Medicine; Visit Provider Internal Medicine Adolescent Medicine
DX: L03.116 Cellulitis of left lower limb (principal); M79.605 Pain in left leg
CPT/HCPCS: 36415; 80053; 85025; 85651; 86140; 93971

== ENCOUNTER 2024-03-21 09:00 | Outpatient (RCR) | payer MEDICARE, SELFPAY ==
--- NOTE | 2024-02-28 11:10 | HMH.PTOPWND ---
Rehab Outpt Wound Evaluation Rehab OP Wound Evaluation Start: 02/28/24 10:54 Freq: Status: Active Protocol: Document 02/28/24 11:00 KURT (Rec: 02/28/24 11:10 PHORWU [id number]) E-signed By Segun Barakat, PT Subjective/History History History This is the initial PT eval for Richard Haas, 63 yowm who presents with c/o acute exacerbation of his chronic L LE lymphedema. He reports suffering a bout of cellulitis beginning ~ 2 mos ago which caused increased L LE edema and an exac of his lymphedema. He has home lymphedema pump, but was unable to use it for several wks due to pain and tenderness related to the cellulitis. He reports pain and tenderness are significantly better at this time. He has PMH of a-fib, R TKA, gastric bypass. Subjective Subjective Currently pain is 0/10, TTP in the L LE is 1/4. Mild blanchable erythema noted to B lower legs, which is baseline . Some hemosiderin staining noted also. 2+ pitting edema and Moderate fibrotic edema noted to the L lower leg this am. New diagnosis of cancer in past 12 No months? Lymphedema Eval Classification of Lymphedema Secondary Lymphedema Yes Stemmer's sign Stemmer's Sign yes Stage of Lymphedema Lymphedema stages Stage II (Pitting edema, increased fibrosis w/ decreased pitting) Skin Changes Dry Skin Yes Hyperkeratosis Yes: mild Redness Yes Discoloration of Skin Yes Other Changes Yes Pain Scale Pain Scale (0-10) 0 Affected Extremities Areas Affected by Lymphedema/Edema Left Lower Extremity Lower Extremity Measurements Left MTP Measurement (cm) 25.5 Heel Measurement (cm) 36.4 10 cm Proximal to Lateral Malleoli 41.6 Measurement (cm) 20 cm Proximal to Lateral Malleoli 50.4 Measurement (cm) 30 cm Proximal to Lateral Malleoli 52.2 Measurement (cm) 40 cm Proximal to Lateral Malleoli 51.8 Measurement (cm) 50 cm Proximal to Lateral Malleoli 0 Measurement (cm) 60 cm Proximal to Lateral Malleoli 0 Measurement (cm) Lower Extremity Measurement Total (cm) 257.9 Wound Problems/Impairments Impairments Problems/Impairmments Palpation Tenderness,Impaired Household Care,Increased Edema ,Lymphedema Present,Impaired Self Care/Self Management Prognosis Rehab Potential Good Comment Skilled therapy is indicated to reduce overall edema burden and return pt to PLOF. Clinical Impression Consistent with Diagnosis Yes Short Term Goals Number of Weeks 2 Decrease Edema Yes: 1+ poitting edema L LE Decrease Lymphedema Yes: Mild fibrotic edema L LE Patient to Understand Lymphedema Yes Treatment and Exercises Decrease Girth Measurments by (cm) Yes: L LE total by 5 cm. Magistrate Judge Goals Number of Weeks 4 Decreased Palpation Tenderness Yes: 0/4 L lower leg Decrease Edema Yes: no pitting edema L LE Decrease Lymphedema Yes: No fibrotic edema L LE Patient to be Ind w/ HEP Yes Patient to be Ind w/ Donning/[place] Yes Compression Garments Patient to Adhere Lymphedema Precautions Yes Decrease Girth Measurments by (cm) Yes: L LE total by 20 cm Outpatient Therapy Plan of Care Treatment Plan May Include Therapeutic Exercise Including Home Yes Exercise Program Manual Therapy Techniques Yes Neuromuscular Re-education Yes Therapeutic Activities to Return to Yes Previous Functional/Work Level ADL/Self Care Education Yes Orthotics/Bracing/Splinting Yes Manual Lymphatic Drainage Yes Eval/Re-Eval Yes Frequency Times per week 2 Duration Number of Weeks 4 Addendums This patient is a candidate for social No or vocational rehab? Patient/Guardian verbally acknowledges Yes understanding of treatment program and consents to further treatment? Patient/Guardian verbally acknowledges Yes understanding of diagnosis, prognosis and goals for treatment? Eval Complexity PT Charges 59583 - High Complexity PHYSICIAN CERTIFICATION: I certify the specified therapy services for Richard Haas are required, authorized, and reviewed every 30 days.
== END 2024-03-21 23:59 | disposition home or self-care (01) ==
LOC: PT 09:00
PROVIDERS: Visit Provider Nurse Practitioner Family
DX: I89.0 Lymphedema, not elsewhere classified (principal)
CPT/HCPCS: 97140; 97163

== ENCOUNTER 2024-05-26 02:00 | Emergency (ER) | payer MEDICARE, SELFPAY ==
[2024-05-26 02:02] VITALS: BP 149/95; PULSE 60; RESP 18; TEMP 36.6; O2SAT 99; BMI 49.6
--- NOTE | 2024-05-26 02:11 | HMH.EDGENADL ---
Discharge Plan Disposition Patient Disposition: Home, Self-Care Prescriptions Prescriptions: New levofloxacin 750 mg tablet 750 mg PO DAILY 5 Days Qty: 5 0RF No Action atorvastatin 10 mg tablet 10 mg PO DAILY metoprolol tartrate 100 mg tablet 100 mg PO BID pantoprazole 20 mg tablet,delayed release (DR/EC) 20 mg PO DAILY potassium chloride 10 mEq tablet,ER particles/crystals 10 meq PO DAILY Eliquis 5 mg tablet 5 mg PO BID cetirizine 10 mg tablet 10 mg PO DAILY Patient Comments: TAKE 1 TABLET BY MOUTH ONCE DAILY fluticasone propionate 50 mcg/actuation spray,suspension 1 spray intranasal DAILY Ozempic 1 mg/dose (4 mg/3 mL) pen injector SQ levothyroxine 50 mcg tablet 50 mcg PO DAILY furosemide 20 mg tablet 20 mg PO DAILY spironolactone 25 mg tablet See Rx Instructions .ROUTE .COMPLEX Qty: 90 1RF Dose Instruction: TAKE 1 TABLET BY MOUTH ONCE DAILY Rx Instructions: TAKE 1 TABLET BY MOUTH ONCE DAILY Referrals Follow up/Referrals: Bob Andrade MD [Staff Physician] - See instructions Armen Holder MD [Primary Care Provider] - See instructions Activity Restrictions/Add. Instructions Additional Instructions/Restrictions: Please take antibiotics as prescribed for treatment of possible urinary tract infection. It is important that you follow-up with urology for assessment of your bladder. If you develop blood clots within your bladder and are unable to pee, it is important that you be seen as soon as possible as you may need a catheter. Please follow-up with your primary care provider. Please return to the emergency department if you develop any new or worsening symptoms or become concerned for your health. Clinical Impressions Clinical Impression: Cynthia hematuria Instructions Patient Instructions: DI for Urinary Tract Infection (UTI), DI for Urinary Tract Infection in Children Print Language Print Language: Greek Discharge ED Provider: Edgardo Ramirez General Adult HPI General Chief complaint: Urogenital-Male Stated complaint: peeing blood, pressure Time Seen by Provider: 05/26/24 02:11 History of Present Illness HPI narrative: 63-year-old male with history of A-fib on Eliquis, type 2 diabetes presents for cynthia hematuria. He reports it started suddenly about 3 hours ago. He reports that he feels some pressure in his bladder but otherwise does not have any significant pain. He reports no preceding symptoms such as dysuria or prior hematuria. No known issues with his bladder. Related Data Home Medications ?Medication ?Instructions ?Recorded ?Confirmed apixaban 5 mg tablet (Eliquis) 5 mg PO BID 02/19/22 02/24/24 atorvastatin 10 mg tablet 10 mg PO DAILY 02/19/22 02/24/24 metoprolol tartrate 100 mg tablet 100 mg PO BID 02/19/22 02/24/24 pantoprazole 20 mg tablet,delayed 20 mg PO DAILY 02/19/22 02/24/24 release potassium chloride 10 mEq 10 meq PO DAILY 02/19/22 02/24/24 tablet,extended release(part/cryst) furosemide 20 mg tablet 20 mg PO DAILY 08/25/22 02/24/24 levothyroxine 50 mcg tablet 50 mcg PO DAILY 08/25/22 02/24/24 cetirizine 10 mg tablet 10 mg PO DAILY 08/26/23 02/24/24 fluticasone propionate 50 1 spray intranasal DAILY 08/26/23 02/24/24 mcg/actuation nasal spray,suspension semaglutide 1 mg/dose (4 mg/3 mL) mg SQ 08/26/23 02/24/24 subcutaneous pen injector (NOW! [employer]) Previous Rx's ?Medication ?Instructions ?Recorded spironolactone 25 mg tablet See Rx Instructions .Route 05/19/24 .COMPLEX #90 tabs levofloxacin 750 mg tablet 750 mg PO DAILY 5 days #5 tabs 05/26/24 Allergies Allergy/AdvReac Type Severity Reaction Status Date / Time No Known Allergies Allergy Verified 02/24/24 09:03 [facility] Disclaimer: The information contained in this section may have been updated after the patient was seen, as this information can be updated by other users. Medical History Chronic a-fib Abnormal electrocardiogram [ECG] [EKG] History of atrial fibrillation GERD (gastroesophageal reflux disease) Surgical History Hx of total knee arthroplasty H/O gastric bypass Family History Mother Diabetes Hypertension Father Heart attack Social History Smoking Status: Never smoker smoking status stop date: 2010 alcohol intake: never current occupational status: retired Travel in the last 8 weeks: Inside the [place] Have you lived/traveled outside [place] in past 30 days?: No Contact w/someone who lives/traveled outside [place] past 30 days?: No Exposure to someone with infectious disease in past 14 days?: No Do you have a fever (greater than 100.4 F or 38 C)?: No Have you tested positive for COVID-19: No Exposed to someone with COVID-19 in past 14 days?: No Do you have a sore throat?: No Do you have a cough?: No Do you have any weakness?: No Do you have any diarrhea?: No Are you experiencing any unusual bleeding?: No Do you have any muscle aches/pain?: No Do you have any abdominal pain?: No Are you experiencing loss of taste or smell?: No ROS Obtained: Yes All systems reviewed & no additional complaints except as documented Physical Exam General General appearance: alert and in no apparent distress Head Head exam: atraumatic and normocephalic Eye Eye exam: Present normal appearance, PERRL and EOMI ENT ENT exam: Present normal oropharynx and normal external ear exam Neck Neck exam: Present normal inspection and full ROM Chest Chest inspection: Present normal inspection and symmetric chest wall rise; Absent tenderness Respiratory Respiratory exam: Present normal lung sounds bilaterally; Absent respiratory distress Cardiovascular Cardiovascular exam: Present regular rate and normal rhythm Abdominal Exam Abdominal exam: Present soft; Absent distention, tenderness or guarding Extremities Exam Extremities exam: Present normal inspection; Absent edema or joint swelling Back Exam Back exam: Present normal inspection; Absent tenderness Neurological Exam Neurological exam: Present alert and oriented X3; Absent motor sensory deficit Psychiatric Psychiatric exam: Present normal affect and normal mood Skin Skin exam: Present warm, dry and normal color Lymphatic Lymphatic Findings: no adenopathy Medical Decision Making Medical Records Medical records reviewed: Yes I reviewed the patient's medical records. Screening: Per USPSTF and CDC recommendations, given the prevalence of disease in our region, it is our hospital?s policy to screen for HIV and viral Hepatitis for all patients aged 18 and over and those with ongoing risk factors. Ok Inquiry Pt receiving controlled substance: No Ok was queried for this patient: No Vital Signs: 05/26/24 02:02 05/26/24 03:39 Temperature 97.8 F 98.1 F Temperature Source Oral Pulse Rate 64 Pulse Rate [Right Brachial] 60 Respiratory Rate 18 20 Blood Pressure 143/84 H Blood Pressure [Right Arm] 149/95 H Blood Pressure Mean [Right Arm] 113 Blood Pressure Source [Right Arm] Automatic Cuff Blood Pressure Position [Right Arm] Supine 02 Sat by Pulse Oximetry 99 Oxygen Delivery Method Room Air Room Air Lab Data Lab results reviewed: Yes I reviewed the patient's lab results. Lab Results 05/26/24 02:08: Urine Color Red, Urine Appearance Turbid, Urine pH 6.5, Ur Specific [place] 1.025, Urine Protein 3+ A, Urine Glucose (UA) Negative, Urine Ketones Trace, Urine Blood 3+ A, Urine Nitrate Positive A, Urine Bilirubin Negative, Urine Urobilinogen 4.0, Ur Leukocyte Esterase 2+ A, Urine RBC Tntc, Urine WBC 5-10, Ur Squamous Epith Cells Occasional, Urine Bacteria 2+ 05/26/24 02:27: WBC 9.1, RBC 5.42, Hgb 15.2, Hct 46.3, MCV 85.4, MCH 28.0, MCHC 32.8, RDW 14.2, Plt Count 259, MPV 9.7, Neut % (Auto) 56.8, Lymph % (Auto) 33.2, Collin % (Auto) 7.9, Eos % (Auto) 1.2, Baso % (Auto) 0.6, Neut # (Auto) 5.2, Lymph # (Auto) 3.0, [place]lin # (Auto) 0.7, Eos # (Auto) 0.1, Baso # (Auto) 0.1, Sodium 140, Potassium 4.4, Chloride 105, Carbon Dioxide 32 H, Anion Gap 7.4, BUN 27 H, Creatinine 1.40 H, Estimated Creat Clear 47, Estimated GFR 51 L, Est GFR ( Amer) 62, Glucose 111 H, Calcium 9.1, Total Bilirubin 1.2, AST 40, ALT 31, Alkaline Phosphatase 131 H, Total Protein 7.7, Albumin 4.4, Globulin 3.3 H, Albumin/Globulin Ratio 1.3 05/26/24 02:29: PT 10.9, INR 0.97, APTT 29.1 05/26/24 02:27 05/26/24 02:27 Orders (Tests/Meds): ED MEDICATIONS Discontinued Medications Generic Name Dose Route Start Last Admin Trade Name Kyaw PRN Reason Stop Dose Admin Iopamidol 75 ml 05/26/24 03:01 05/26/24 03:02 Iopamidol-370 (76%);100ml Bottle IV 05/26/24 03:02 75 ml ONCE ONE Administration Levofloxacin 750 mg 05/26/24 03:32 05/26/24 03:50 Levofloxacin 750 Mg Tablet PO 05/26/24 03:33 750 mg ONCE ONE Administration Sodium Chloride 10 ml 05/26/24 03:01 05/26/24 03:02 Sodium Chloride 0.9% 10ml Syr (Rad Only) IV 05/26/24 03:02 10 ml ONCE ONE Administration ORDERS Category Date Time Status CT abdomen pelvis w con Stat Cat Scan 05/26/24 02:14 Completed CBC w/Auto Diff [Complete Blood Count Auto Diff] Stat Lab 05/26/24 02:27 Completed CMP [Comprehensive Metabolic Panel] Stat Lab 05/26/24 02:27 Completed HIV Combo Stat Lab 05/26/24 02:20 Received Hep C Ab with Reflex to RNA Stat Lab 05/26/24 02:20 Received PT INR [Prothrombin Time INR] Stat Lab 05/26/24 02:29 Completed PTT [Activated Partial Thrombo Time] Stat Lab 05/26/24 02:29 Completed UA [Urinalysis and Microscopic] Stat Lab 05/26/24 02:08 Completed Urine Culture Stat Micro 05/26/24 02:08 Received Medical Decision Narrative: 63-year-old male with history of A-fib on Eliquis, type 2 diabetes presents for cynthia hematuria of sudden onset. History was obtained via interactive discussion with patient. On arrival, patient is [afebrile, hemodynamically stable, satting appropriately, alert, oriented x4, GCS 15], moving all extremities spontaneously. Full physical exam performed and significant for no significant physical exam abnormality Differential includes but is not limited to hematuria, bladder obstruction, kidney stone, coagulopathy, malignancy, anemia. Workup initiated including CBC CMP UA PT/INR CT abdomen pelvis with IV contrast. On re-evaluation, patient [remains afebrile, HD stable.] Laboratory workup independently interpreted by me and significant for too numerous to count red blood cells, positive nitrate, 5-10 WBCs, 2+ bacteria. This could be consistent with hemorrhagic cystitis/UTI. CT imaging interpreted by me shows a decompressed bladder with some wall thickening, no evidence of obstruction or urinary retention. Radiology reports that the bladder is not well-visualized due to lack of the urine within the bladder and recommended considering repeat CT scan. Patient's bleeding is already improving and his urine is clearing somewhat. I considered repeating a CT scan but do not think it would be of significant utility at this time. Given patient history, exam and workup, patient's presentation most likely represents cynthia hematuria which may be result of hemorrhagic cystitis in the setting of Eliquis use for A-fib. I discussed with patient these findings. Given the blood in his urine, he is at high risk for clot and obstruction. We considered prophylactically placing a catheter, but given he is still peeing without difficulty and wrist fully decompressed on CT scan, I think is reasonable to continue trial of voiding at home. Given the urinalysis he was given Levaquin and discharged prescription for Levaquin for treatment of possible cystitis. Discussed with patient regarding his anticoagulation use. Given his new hematuria, there is still the possibility that there is a neoplasm or some other pathology. recommended he follow-up with urology as soon as possible for continued assessment. Procedures Risk/Benefits of Procedure(s) Were Explained: Yes Critical Care Critical Care Time Critical Care Time: No
--- NOTE | 2024-05-26 02:14 | CT_ITS ---
PROCEDURE INFORMATION: Exam: CT Abdomen And Pelvis With Contrast Exam date and time: 05/26/2024 2:57 AM Age: 63 years old Clinical indication: Pain; Other: Pelvic/bladder; Additional info: Pelvic/bladder pain, hematuria TECHNIQUE: Imaging protocol: Computed tomography of the abdomen and pelvis with contrast. Radiation optimization: All CT scans at this facility use at least one of these dose optimization techniques: automated exposure control; mA and/or kV adjustment per patient size (includes targeted exams where dose is matched to clinical indication); or iterative reconstruction. Contrast material: ISOVUE; Contrast volume: 75 ml; Contrast route: IV; COMPARISON: CR XR CHEST PORTABLE 01/29/2024 3:53 PM FINDINGS: Liver: Normal. No mass. Gallbladder and biliary ducts: Normal. No calcified stones. No ductal dilation. Pancreas: Normal. No ductal dilation. Spleen: Normal. No splenomegaly. Adrenal glands: Normal. No mass. Kidneys and ureters: Normal. No hydronephrosis. Stomach and bowel: Gastric bypass. No obstruction. No mucosal thickening. Appendix: No evidence of appendicitis. Intraperitoneal space: Unremarkable. No free air. No significant fluid collection. Vasculature: IVC filter in the infrarenal cava. Filter struts extend into the pericaval retroperitoneum. No abdominal aortic aneurysm. Lymph nodes: Unremarkable. No enlarged lymph nodes. Urinary bladder: Urinary bladder is poorly evaluated due to underdistention. There is possible wall thickening and inflammation. Reproductive: Unremarkable as visualized. Bones/joints: Unremarkable. No acute fracture. Soft tissues: Unremarkable. IMPRESSION: Suboptimal evaluation of the urinary bladder due to underdistention. There is possible wall thickening and inflammation, such as would be seen in cystitis. Repeat pelvic CT following aggressive hydration recommended. COMMENTS: For patients with an IVC filter, recommend assessment for a management plan for the patient's IVC filter. If there is no established management plan, recommend referral to an interventional clinician on a nonemergent basis for evaluation.
[2024-05-26 02:24] LABS: Microscopic, Urine URINE MICROSCOPIC (MICROSCOPIC)
[2024-05-26 02:37] LABS: Appearance,Urine TURBID (Clear); Blood, Urine 3+ (Negative); Color,Urine RED (Yellow); Glucose,Urine (UA) Negative (Negative); Ketones,Urine TRACE (Negative); Leukocyte Esterase,Urine 2+ (Negative); Nitrate,Urine POSITIVE (Negative); PH,Urine 6.5 (5.0-8.5); Protein,Urine 3+ (Negative); Specific Gravity, Urine 1.025 (1.005-1.030)
[2024-05-26 02:40] LABS: Basophils % 0.6 % (0.1-2.0); Eosinophils % 1.2 % (0.1-12.0); Hematocrit 46.3 % (42.0-52.0); Hemoglobin 15.2 g/dL (14.1-18.0); Lymphocytes % 33.2 % (10-50); Mean Corpuscular HGB Conc 32.8 g/dL (31.8-35.4); Mean Corpuscular Volume 85.4 fl (80-94); Mean Platelet Volume 9.7 fl (7.4-10.4); Monocytes % 7.9 % (1.7-9.3); Neutrophils % 56.8 % (37.0-80.0); Platelet Count 259 K/mm3 (142-424); Red Blood Count 5.42 M/mm3 (4.60-6.20); Red Cell Distribution Width 14.2 % (11.5-17.5); White Blood Count 9.1 K/mm3 (4.8-10.8)
[2024-05-26 02:41] LABS: Basophils # 0.1 K/mm3 (0-0.2); Eosinophils # 0.1 K/mm3 (0.0-0.4); Monocytes # 0.7 K/mm3 (0.1-1.0); Neutrophils # 5.2 K/mm3 (1.8-7.8)
[2024-05-26 02:41] LABS: Bilirubin,Urine Negative (Negative)
[2024-05-26 02:45] LABS: Alanine Aminotransferase 31 U/L (12-78); Albumin Level 4.4 g/dl (3.5-5.0); Albumin/Globulin Ratio 1.3 (1.1-1.8); Alkaline Phosphatase 131 U/L (38-126); Anion Gap 7.4 mEq/L (5-15); Aspartate Amino Transferase 40 U/L (17-59); Bilirubin,Total 1.2 mg/dl (0.2-1.3); Blood Urea Nitrogen 27 mg/dl (9-20); Calcium 9.1 mg/dl (8.4-10.2); Carbon Dioxide 32 mmol/L (22.0-30.0); Chloride 105 mmol/L (98-107); Creatinine Clearance Estimated 47 mL/min (50-200); Estimated Glomerular Filt Rate 51 ml/min (>60); GFR (African American) 62 ML/MIN (>60); Globulin 3.3 g/dL (1.3-3.2); Glucose 111 mg/dl (74-100); Potassium 4.4 mmoL/L (3.5-5.1); Sodium 140 mmol/L (136-145); Total Protein,Serum 7.7 g/dl (6.3-8.2)
[2024-05-26 02:52] LABS: Bacteria,Urine 2+ /lpf; RBC,Urine TNTC #/hpf (0-3); Squamous Epithelial Cell,Urine Occasional #/hpf (0-5)
[2024-05-26] MEDS: IOPAMIDOL-370 (76%);100ML BOTTLE 75 ML IV (03:02)
[2024-05-26] MEDS: SODIUM CHLORIDE 0.9% 10ML SYR (RAD ONLY) 10 ML IV (03:02)
[2024-05-26 03:10] LABS: Activated Partial Thrombo Time 29.1 seconds (22.8-30.6); INR 0.97 (0.9-1.1); Prothrombin Time 10.9 seconds (10.1-12.5)
[2024-05-26 03:39] VITALS: BP 143/84; PULSE 64; RESP 20; TEMP 36.7; O2SAT 100
[2024-05-26] MEDS: levoFLOXacin 750 MG TABLET PO (03:50)
[2024-05-26 05:00] LABS: HIV Combo NEGATIVE (Negative)
[2024-05-27 08:14] LABS: HCV Ab Non Reactive (Non Reactive)
--- NOTE | 2024-05-28 10:40 | PC.NURSE ---
discussed urine culture with , pt dc with levaquin, no new orders
== END 2024-05-26 03:53 | disposition home or self-care (01) ==
PROVIDERS: Emergency Provider Emergency Medicine; PCP Internal Medicine Adolescent Medicine
DX: R31.0 Gross hematuria (principal)
CPT/HCPCS: 74177; 80053; 81001; 85025; 85610; 85730; 86803; 87086; 87088; 87186; 87389; 99285; Q9967

== ENCOUNTER 2024-09-04 11:09 | Outpatient (CLI) | payer MEDICARE, SELFPAY ==
[2024-09-04 12:54] LABS: Blood Urea Nitrogen 18 mg/dl (9-20); Estimated Glomerular Filt Rate 67 ml/min (>60); GFR (African American) 82 ML/MIN (>60)
[2024-09-04 16:28] LABS: Microscopic, Urine URINE MICROSCOPIC (MICROSCOPIC)
[2024-09-04 17:03] LABS: Appearance,Urine CLEAR (Clear); Bilirubin,Urine Negative (Negative); Blood, Urine Negative (Negative); Color,Urine YELLOW (Yellow); Glucose,Urine (UA) Negative (Negative); Ketones,Urine Negative (Negative); Leukocyte Esterase,Urine Negative (Negative); Nitrate,Urine Negative (Negative); PH,Urine 5.5 (5.0-8.5); Protein,Urine Negative (Negative); Specific Gravity, Urine >= 1.030 (1.005-1.030); Urobilinogen,Urine 0.2 EU/dl (0.2)
[2024-09-04 17:50] LABS: Bacteria,Urine 1+ /lpf
[2024-09-05 08:43] LABS: PSA, Free 0.34 ng/mL; Prostate Specific Ag 0.6 ng/mL (0.0-4.0)
== END 2024-09-04 23:59 | disposition home or self-care (01) ==
LOC: LAB 11:10
PROVIDERS: PCP Internal Medicine Adolescent Medicine; Visit Provider Urology
DX: Z12.5 Encounter for screening for malignant neoplasm of prostate (principal); N30.01 Acute cystitis with hematuria; N40.1 Benign prostatic hyperplasia with lower urinary tract symptoms; N52.9 Male erectile dysfunction, unspecified
CPT/HCPCS: 36415; 81001; 82565; 84153; 84154; 84520

== ENCOUNTER 2024-10-03 09:48 | Outpatient (CLI) | payer MEDICARE, SELFPAY ==
--- OUTSIDE RECORDS SUMMARY | 2024-10-03 09:50 | XMS_ITS | Clinical Summary ---
Author Organization [facility] , [facility] Address [address] [place] [address] Phone Care Team Providers Care Model Making Supervisor Name Role Phone Alex SILVA, Rogelio Marie Unavailable Unavail able Reason for Visit and Chief Complaint The Chief Complaint is: Left shoulder pain Problems Includes: Problems addressed during this encounter and other active Problems All Visits Onset Date Resolved Date Provider Condition S tatus Pain in the Left Hand Only 07/28/2023 Amarjit Akers MD Active Last Documented On 4 11:20AM ; [facility], [facility] Joint Pain, Localized in the Left Shoulder 12/30/2022 Rogelio Johnson MD Active Last Documented On 3 1:57PM ; [facility], [facility] Plan of Treatment Plan will be for continued observation of the shoulder. He may require injection in the future. As far as his hand goes I did talk directly with Dr. Hoffman whenever hand specialists who graciously agreed to see this patient today for evaluation. We will see this patient back for his shoulder as needed. I will defer to Dr. Walker for further management of his hand. - Last Documented On 09/19/2023 6:37PM ; [facility] Pending Tests Order Diagnosis Results Due Ordering P rovider Procedure/Tests Nerve Conduction Study 01/13/23 Rogelio Johnson MD Last Documented On 3 12:30PM ; [facility], [facility] Radiology - MRI MRI Shoulder Overweight 02/01/23 Rogelio Johnson MD Last Documented On 3 9:12AM ; [facility], [facility] Instructions to patient Lose weight Last Documented On 4 10:23AM ; [facility], [facility] Assessments Includes: Assessments from this encounter Findings - Overweight - Last Documented On 09/19/2023 6:37PM ; [facility], [facility] Left shoulder glenohumeral arthritis. 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 - Last Documented On 09/19/2023 6:37PM ; [facility] Instructions Includes: Instructions from this encounter Instructions to patient Lose weight Last Documented On 4 10:23AM ; [facility] Medical Equipment - Implanted Devices Includes: Current Devices No Medical Equipment Recorded Medications Includes: Medications discussed during this encounter and other current Medications Current Medications (continue as prescribed) Spironolactone 25 MG Oral Tablet 12/12/2022 Provider : Diagnosis: Last Documented On 3 1:57PM By Kendra Paniagua ; [facility], [facility] Eliquis 5 MG Oral Tablet 12/11/2022 Provider: Diagnosis: Last Documented On 3 1:57PM By Kendra Paniagua ; [facility], [facility] Metoprolol Tartrate 100 MG Oral Tablet 12/11/2022 Pr ovider: Diagnosis: Last Documented On 3 1:57PM By Kendra Paniagua ; [facility], [facility] Potassium Chloride Blaire ER 10 MEQ Oral Tablet Ex tended Release 12/11/2022 Provider: Diagnosis: Last Documented On 3 1:57PM By Kendra Paniagua ; [facility] Atorvastatin Calcium 10 MG Oral Tablet 12/10/2022 Pr ovider: Diagnosis: Last Documented On 3 1:57PM By Kendra Paniagua ; [facility] Furosemide 40 MG Oral Tablet 12/10/2022 Provider: Diagnosis: Last Documented On 3 1:57PM By Kendra Paniagua ; [facility] Ozempic (0.25 or 0.5 MG/DOSE ) 2 MG/3ML Subcutaneous Solution Pen-injector 12/09/2022 Provider: Diagnosis: Last Documented On 3 1:57PM By Kendra Paniagua ; [facility] Metoprolol Tartrate 100 MG Oral Tablet 11/17/2022 Pr ovider: Diagnosis: Last Documented On 3 1:57PM By Kendra Paniagua ; [facility] tiZANidine HCl 4 MG Oral Tablet 11/10/2022 Provider: CARMEN KELLY MD Diagnosis: Last Documented On 3 1:57PM By Kendra Paniagua ; [facility] predniSONE 20 MG Oral Tablet 08/20/2022 Provider: Diagnosis: Last Documented On 3 1:57PM By Kendra Paniagua ; [facility] Medications Administered Includes: Administered Medications from this encounter No Administered Medications Recorded Vital Signs Includes: Vital Signs from this encounter Vital Name 07/28/2023 10:24A Height (in) 65 Weight (lb) 332 Body Mass Index 55.2 Body Surface Area 2.5 Note: hdv Last Documented: On 07/28/2023 10:24A M ; [facility] Results Includes: Results discussed during this encounter No Results Recorded For Specified Dates History of Present Illness Includes: History of Present Illness from this encounter GIRMA Haas is a 63 year old male. - Allergy list reviewed - Problem list reviewed - Medication list reviewed - Previous history of new onset pain 7 months ago from unknown cause - Pain is constant (100% of the time) - Patient pain level from 1-10: 7 Pain is worse with lifting. Nothing makes the pain better - Yes, previous treatment. PCP - History of Physical Therapy Patient is here for follow up of his left shoulder. He had an injection about 5 weeks ago. He states he is doing extremely well. He has minimal to no pain in his shoulder. Of note, this patient did suffer a dog bite to the dorsum of his hand, he stated that he saw his primary care physician who placed him on an antibiotic. He had severe swelling over the hand and erythema which is since remitted on this antibiotic. He says that he still has some weakness particularly of his long finger particularly with extension. He has had no fevers chills or constitutional symptoms. Social History Description Last Updated No caffeine use 12/30/2022 Last Documented On 4 10:23AM ; [facility] No recent change in diet 12/30/2022 Last Documented On 4 10:23AM ; [facility] Not a current smoker. 12/30/2022 Last Documented On 4 10:23AM ; [facility] Not exercising regularly 12/30/2022 Last Documented On 4 10:23AM ; [facility], [facility] Not using alcohol 12/30/2022 Last Documented On 4 10:23AM ; [facility] Not using drugs 12/30/2022 Last Documented On 4 10:23AM ; [facility], [facility] Tobacco non-user 12/30/2022 Last Documented On 4 10:23AM ; [facility], [facility] Smoking Status Unknown Procedures and Surgical History Includes: Procedures from this encounter Procedures Code Diagnosis Performing Provider Service L ocation Service Date use of tobacco assessment performed 1000F Last Documented On 4 10:23AM ; [facility], [facility] review of medications documented 1160F Last Documented On 4 10:23AM ; [facility], [facility] an MRI was performed 51331 Last Documented On 4 10:23AM ; [facility], [facility] Medical History Includes: Medical History addressed during this encounter Description Last Updated Past surgical history non-contributory 0 12/30/2022 Last Documented On 4 10:23AM ; [facility], [facility] History of diabetes mellitus 12/30/2022 Last Documented On 4 10:23AM ; [facility], [facility] History of Heartburn / Acid Reflux 12/30 Last Documented On 4 10:23AM ; [facility], [facility] History of Hypertension 12/30/2022 Last Documented On 4 10:23AM ; [facility] History of Sleep Apnea 12/30/2022 Last Documented On 4 10:23AM ; [facility], [facility] Use of CPAP 12/30/2022 Last Documented On 4 10:23AM ; [facility], [facility] Family History Includes: Family History addressed during this encounter Description Last Updated Diabetes mellitus 12/30/2022 Last Documented On 4 10:23AM ; [facility], [facility] Review of Systems Includes: Review of Systems from this encounter Systemic: Not feeling tired, no recent weight loss, and no recent weight gain. Head: No headache and no sinus pain. Eyes: No vision problems, no Cataracts, no Glasses/Contacts, and no Glaucoma. Otolaryngeal: No hearing loss and no tinnitus. Cardiovascular: No chest pain or discomfort, no palpitations, no Hypertension, and no High Cholesterol. Pulmonary: No daytime asthma symptoms and no chronic cough. No wheezing. Gastrointestinal: No heartburn and no abdominal pain. No Indigestion, no Acid Reflux, no Peptic Ulcer, no GI Stomach Bleed, and no Ulcers. Endocrine: No hot flashes, no muscle weakness, no Diabetes, no Hypothyroid, and no Hyperthyroid. Hematologic: No easy bleeding, no tendency for easy bruising, and no Anemia. Musculoskeletal: No Arthritis and no lower back pain. No soft tissue swelling and no localized joint pain. Neurological: No dizziness, no convulsions, and no numbness. Psychological: No anxiety, no emotional lability, no depression, and no insomnia. Not crying for no reason. Skin: No dry skin. No Ulcers, no Scars, and no rash. Allergic and Immunologic: No complaint of seasonal allergic reaction. Mental Status Includes: Mental Status from this encounter Description No anxiety Functional Status Includes: Functional Status from this encounter No Functional Status Recorded Physical Exam Includes: Physical Exam from this encounter Allergies Includes: Active Allergies No Known Allergies Encounters Encounter Provider Location Date Check-In Time Check-Out Time Diagnosis Follow Up Rogelio Johnson MD [facility] 4 10:14AM 10:46AM Overweight Insurance Includes: Active Insurance Policies Plan Name Member ID Group # Subscriber Relationship Effect ketty Dates 1 - [facility] e/MEDICARE [id number] Richard Haas Self 4 - Unknown Clinical Notes Includes: Clinical Notes from this encounter * Progress note Date Encounter Last Documented by 07/28/2023 Follow Up Last documented on 09/19/2023; 6:37 PM, Rogelio Johnson MD; [facility], [facility] Active Problems & Conditions - Joint Pain, Localized in the Left Shoulder - Pain in the Left Hand Only Chief Complaint The Chief Complaint is: Left shoulder pain. Referred Here Referred by. History of Present Illness Richard Haas is a 63 year old male. - Allergy list reviewed - Problem list reviewed - Medication list reviewed - Previous history of new onset pain 7 months ago from unknown cause - Pain is constant (100% of the time) - Patient pain level from 1-10: 7 Pain is worse with lifting. Nothing makes the pain better - Yes, previous treatment. PCP - History of Physical Therapy Patient is here for follow up of his left shoulder. He had an injection about 5 weeks ago. He states he is doing extremely well. He has minimal to no pain in his shoulder. Of note, this patient did suffer a dog bite to the dorsum of his hand, he stated that he saw his primary care physician who placed him on an antibiotic. He had severe swelling over the hand and erythema which is since remitted on this antibiotic. He says that he still has some weakness particularly of his long finger particularly with extension. He has had no fevers chills or constitutional symptoms. Current Medication - Atorvastatin Calcium 10 MG Oral Tablet 90 days, 0 refills - Eliquis 5 MG Oral Tablet 30 days, 0 refills - Furosemide 40 MG Oral Tablet 90 days, 0 refills - Metoprolol Tartrate 100 MG Oral Tablet 30 days, 0 refills - Metoprolol Tartrate 100 MG Oral Tablet 30 days, 0 refills - Ozempic (0.25 or 0.5 MG/DOSE) 2 MG/3ML Subcutaneous Solution Pen-injector 28 days, 0 refills - Potassium Chloride Blaire ER 10 MEQ Oral Tablet Extended Release 30 days, 0 refills - predniSONE 20 MG Oral Tablet 7 days, 0 refills - Spironolactone 25 MG Oral Tablet 30 days, 0 refills - tiZANidine HCl 4 MG Oral Tablet 14 days, 0 refills Past Medical/Surgical History Reported: Use of CPAP. Diagnoses: Sleep Apnea Heartburn / Acid Reflux Hypertension. Diabetes mellitus Past surgical history non-contributory. Social History Not a current smoker. Current diet: No recent change in diet. Caffeine use: No caffeine use. Tobacco use: Tobacco non-user. Alcohol: Not using alcohol. Drug Use: Not using drugs. Habits: Not exercising regularly. Allergies - No Known Allergies Family History Diabetes mellitus Review Of Systems Systemic: Not feeling tired, no recent weight loss, and no recent weight gain. Head: No headache and no sinus pain. Eyes: No vision problems, no Cataracts, no Glasses/Contacts, and no Glaucoma. Otolaryngeal: No hearing loss and no tinnitus. Cardiovascular: No chest pain or discomfort, no palpitations, no Hypertension, and no High Cholesterol. Pulmonary: No daytime asthma symptoms and no chronic cough. No wheezing. Gastrointestinal: No heartburn and no abdominal pain. No Indigestion, no Acid Reflux, no Peptic Ulcer, no GI Stomach Bleed, and no Ulcers. Endocrine: No hot flashes, no muscle weakness, no Diabetes, no Hypothyroid, and no Hyperthyroid. Hematologic: No easy bleeding, no tendency for easy bruising, and no Anemia. Musculoskeletal: No Arthritis and no lower back pain. No soft tissue swelling and no localized joint pain. Neurological: No dizziness, no convulsions, and no numbness. Psychological: No anxiety, no emotional lability, no depression, and no insomnia. Not crying for no reason. Skin: No dry skin. No Ulcers, no Scars, and no rash. Allergic and Immunologic: No complaint of seasonal allergic reaction. Physical Findings - Vitals taken 07/28/2023 10:24 am hdv Height 65 in Weight 332 lbs Body Mass Index 55.2 kg/m2 Body Surface Area 2.5 m2 Alert and oriented x 3, Skin intact, No gross deformity, no atrophy of rotator cuff musculature, Sensation intact to light touch through upper extremity. Range of motion full. Fingers warm well perfused. Impingement testing negative. Rotator cuff strength testing within normal limits. Biceps testing negative. AC joint signs negative. Exam of the hand demonstrates a margin of erythema that is proximally 2 cm in diameter. There is focal swelling over the dorsal aspect of the MCP joint at the long finger. He is able to flex nearly fully with some difficulty and some moderate pain. Most notably he has an extension lag at the MCP joint of approximately 20-30 degrees. Assessment - Overweight Left shoulder glenohumeral arthritis. 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 Previous Tests Imaging: MRI Scan: An MRI was performed. Counseling/Education - Lose weight Plan Plan will be for continued observation of the shoulder. He may require injection in the future. As far as his hand goes I did talk directly with Dr. Hoffman whenever hand specialists who graciously agreed to see this patient today for evaluation. We will see this patient back for his shoulder as needed. I will defer to Dr. Walker for further management of his hand. Notes This dictation was done with voice recognition software and may contain errors and omissions. Practice Management Use of tobacco assessment performed Review of medications documented.
--- OUTSIDE RECORDS SUMMARY | 2024-10-03 09:50 | XMS_ITS | Clinical Summary ---
Author Organization [facility] , [facility] Address [address] [place] [address] Phone Care Team Providers Care Impregnator [employer] Products Name Role Phone Alex SILVA, Rogelio Marie Unavailable [phone] Reason for Visit and Chief Complaint INJECTION Problems Includes: Problems addressed during this encounter and other active Problems All Visits Onset Date Resolved Date Provider Condition S tatus Pain in the Left Hand Only 07/28/2023 Amarjit Akers MD Active Last Documented On 4 11:20AM ; [facility], [facility] Joint Pain, Localized in the Left Shoulder 12/30/2022 Rogelio Johnson MD Active Last Documented On 3 1:57PM ; [facility], [facility] Plan of Treatment No Plan of Treatment Recorded Assessments Includes: Assessments from this encounter No Assessments Recorded Medical Equipment - Implanted Devices Includes: Current Devices No Medical Equipment Recorded Medications Includes: Medications discussed during this encounter and other current Medications Current Medications (continue as prescribed) Spironolactone 25 MG Oral Tablet 12/12/2022 Provider : Diagnosis: Last Documented On 3 1:57PM By Kendra Paniagua ; [facility], [facility] Eliquis 5 MG Oral Tablet 12/11/2022 Provider: Diagnosis: Last Documented On 3 1:57PM By Kendra Paniagua ; [facility], [facility] Metoprolol Tartrate 100 MG Oral Tablet 12/11/2022 Pr ovider: Diagnosis: Last Documented On 3 1:57PM By Kendra Paniagua ; [facility] Potassium Chloride Blaire ER 10 MEQ Oral Tablet Ex tended Release 12/11/2022 Provider: Diagnosis: Last Documented On 3 1:57PM By Kendra Paniagua ; [facility], [facility] Atorvastatin Calcium 10 MG Oral Tablet 12/10/2022 Pr ovider: Diagnosis: Last Documented On 3 1:57PM By Kendra Paniagua ; [facility], [facility] Furosemide 40 MG Oral Tablet 12/10/2022 Provider: Diagnosis: Last Documented On 3 1:57PM By Kendra Paniagua ; [facility], [facility] Ozempic (0.25 or 0.5 MG/DOSE ) 2 MG/3ML Subcutaneous Solution Pen-injector 12/09/2022 Provider: Diagnosis: Last Documented On 3 1:57PM By Kendra Paniagua ; [facility], [facility] Metoprolol Tartrate 100 MG Oral Tablet 11/17/2022 Pr ovider: Diagnosis: Last Documented On 3 1:57PM By Kendra Paniagua ; [facility], [facility] tiZANidine HCl 4 MG Oral Tablet 11/10/2022 Provider: CARMEN KELLY MD Diagnosis: Last Documented On 3 1:57PM By Kendra Paniagua ; [facility], [facility] predniSONE 20 MG Oral Tablet 08/20/2022 Provider: Diagnosis: Last Documented On 3 1:57PM By Kendra Paniagua ; [facility], [facility] Medications Administered Includes: Administered Medications from this encounter No Administered Medications Recorded Results Includes: Results discussed during this encounter No Results Recorded For Specified Dates History of Present Illness Includes: History of Present Illness from this encounter No History of Present Illness Recorded Social History No Social History Recorded - Smoking Status Unknown Medical History Includes: Medical History addressed during this encounter No Medical History Recorded Family History Includes: Family History addressed during this encounter No Family History Recorded Review of Systems Includes: Review of Systems from this encounter No Review of Systems Recorded Mental Status Includes: Mental Status from this encounter No Mental Status Recorded Functional Status Includes: Functional Status from this encounter No Functional Status Recorded Physical Exam Includes: Physical Exam from this encounter Allergies Includes: Active Allergies No Known Allergies Encounters Encounter Provider Location Date Check-In Time Check-Out Time Diagnosis INJECTION Herb Rangel PA-C [facility] [place] 02/19/20 3:04PM 3:27PM Insurance Includes: Active Insurance Policies Plan Name Member ID Group # Subscriber Relationship Effect ketty Dates 1 - [facility] e/MEDICARE [id number] Richard Cespedes 4 - Unknown Clinical Notes Includes: Clinical Notes from this encounter * Progress note Date Encounter Last Documented by 02/18/2023 INJECTION Last documented on 02/19/2023; 7:54 AM, Herb Rangel PA-C; [facility], [facility] Physical Findings HPI: Left Shoulder pain. Risks and benefits were explained to the patient and they gave consent to proceed. Timeout procedure was performed confirming correct patient, procedure, and site of injection. Physical exam: Patient alert and oriented. Skin over anterior shoulder is clean and dry. No redness or rash Procedure: Intra-articular left shoulder steroid injection under fluoroscopy: The patient was brought to the fluoroscopic suite and informed of the risks and benefits of the procedure. The patient gave consent and elected to proceed. The overlying skin was cleaned and prepped in the usual sterile fashion with chlorhexadine. Fluoroscopy was utilized to guide a 3-1/2 inch 22-gauge spinal needle over the anterior/medial humeral head. A small amount of iodinated contrast was injected confirming intra-articular placement. Subsequently an injection of 2 mL of betamethasone, 2 mL lidocaine, and 2 mL Marcaine was injected. The patient tolerated the procedure well and there were no complications. Follow-up: The patient was seen by myself, Herb Rangel PA-C Electronically signed ERMA Yusuf Notes This dictation was done with voice recognition software and may contain errors and omissions.
--- OUTSIDE RECORDS SUMMARY | 2024-10-03 09:51 | XMS_ITS | Clinical Summary ---
Author Organization [facility] , [facility] Address [address] [place] [address] Phone Care Team Providers Care Managed Care Provider Name Role Phone Alex SILVA, Rogelio Marie Unavailable [phone] Reason for Visit and Chief Complaint INJECTION Problems Includes: Problems addressed during this encounter and other active Problems All Visits Onset Date Resolved Date Provider Condition S tatus Pain in the Left Hand Only 07/28/2023 Amarjit Akers MD Active Last Documented On 4 11:20AM ; [facility] Joint Pain, Localized in the Left Shoulder 12/30/2022 Rogelio Johnson MD Active Last Documented On 3 1:57PM ; [facility] Plan of Treatment No Plan of Treatment Recorded Assessments Includes: Assessments from this encounter No Assessments Recorded Medical Equipment - Implanted Devices Includes: Current Devices No Medical Equipment Recorded Medications Includes: Medications discussed during this encounter and other current Medications Current Medications (continue as prescribed) Spironolactone 25 MG Oral Tablet 12/12/2022 Provider : Diagnosis: Last Documented On 3 1:57PM By Kendra Paniagua ; [facility], [facility] Eliquis 5 MG Oral Tablet 12/11/2022 Provider: Diagnosis: Last Documented On 3 1:57PM By Kendra Paniagua ; [facility] Metoprolol Tartrate 100 MG Oral Tablet 12/11/2022 Pr ovider: Diagnosis: Last Documented On 3 1:57PM By Kendra Paniagua ; [facility], [facility] Potassium Chloride Blaire ER 10 MEQ Oral Tablet Ex tended Release 12/11/2022 Provider: Diagnosis: Last Documented On 3 1:57PM By Kendra Paniagua ; [facility], [facility] Atorvastatin Calcium 10 MG Oral Tablet 12/10/2022 Pr ovider: Diagnosis: Last Documented On 3 1:57PM By Kendra Paniagua ; [facility], [facility] Furosemide 40 MG Oral Tablet 12/10/2022 Provider: Diagnosis: Last Documented On 3 1:57PM By Kendra Paniagua ; [facility], [facility] Ozempic (0.25 or 0.5 MG/DOSE ) 2 MG/3ML Subcutaneous Solution Pen-injector 12/09/2022 Provider: Diagnosis: Last Documented On 3 1:57PM By Kendra Paniagua ; [facility], [facility] Metoprolol Tartrate 100 MG Oral Tablet 11/17/2022 Pr ovider: Diagnosis: Last Documented On 3 1:57PM By Kendra Paniagua ; [facility], [facility] tiZANidine HCl 4 MG Oral Tablet 11/10/2022 Provider: CARMEN KELLY MD Diagnosis: Last Documented On 3 1:57PM By Kendra Paniagua ; [facility] predniSONE 20 MG Oral Tablet 08/20/2022 Provider: Diagnosis: Last Documented On 3 1:57PM By Kendra Panigaua ; [facility] Medications Administered Includes: Administered Medications from this [...] Check-Out Time Diagnosis INJECTION Herb Rangel PA-C [facility] [place] 06/17/19 24 2:49PM 3:00PM Insurance Includes: Active Insurance Policies Plan Name Member ID Group # Subscriber Relationship Effect ketty Dates 1 - [facility] e/MEDICARE [id number] Richard Cespedes 4 - Unknown Clinical Notes Includes: Clinical Notes from this encounter * Progress note Date Encounter Last Documented by 06/17/2023 INJECTION Last documented on 06/17/2023; 4:31 PM, Herb Rangel PA-C; [facility], [facility] Physical Findings HPI: Left Shoulder pain. Risks [...] The patient was seen by myself, Herb Ragnel PA-C Electronically signed ERMA Yusuf Notes This dictation was done with voice recognition software and may contain errors and omissions.
--- OUTSIDE RECORDS SUMMARY | 2024-10-03 09:51 | XMS_ITS ---
Care Plan - [facility], [facility] Created on: October 03, 2024 Richard Haas : 1960 Sex: Male Author Organization [facility], [facility] Address [address] [place] [address] Phone Care Team Providers Care Staff Therapist Name Role Phone Alex SILVA, Rogelio Marie Unavailable [phone]
--- OUTSIDE RECORDS SUMMARY | 2024-10-03 09:51 | XMS_ITS | Clinical Summary ---
Author Organization [facility] , [facility] Address [address] [place] [address] Phone Care Team Providers Care Baggage Agent Name Role Phone Alex SILVA, Rogelio Marie Unavailable [phone] Reason for Visit and Chief Complaint The Chief Complaint is: L hand pain Problems Includes: Problems addressed during this encounter and other active Problems Current Visit Onset Date Resolved Date Provider David helms Status Pain in the Left Hand Only 07/28/2023 Amarjit Akers MD Active Last Documented On 4 11:20AM ; [facility], [facility] Past Visits Onset Date Resolved Date Provider Condition Status Joint Pain, Localized in the Left Shoulder 12/30/2022 Rogelio helms MD Active Last Documented On 3 1:57PM ; [facility], [facility] Plan of Treatment I explained to the patient that I feel he has sustained an injury to the extensor tendon LLF. We discussed allowing the injection to resolve a little more and continuing antibiotics for the next week, and then scheduling for extensor tendon repair on 08/16/23. We will see him back in one week for wound recheck. We will schedule the patient for extensor tendon repair LLF under general anesthesia and will see him back postop. I have explained the risks, benefits, and alternatives to surgery. I have answered the patient's questions in detail. - Last Documented On 08/07/2023 4:52PM ; [facility], [facility] Instructions to patient Lose weight Last Documented On 4 11:21AM ; [facility], [facility] Assessments Includes: Assessments from this encounter Findings - Overweight - Last Documented On 08/07/2023 4:52PM ; [facility], [facility] Instructions Includes: Instructions from this encounter Instructions to patient Lose weight Last Documented On 4 11:21AM ; [facility], [facility] Medical Equipment - Implanted Devices Includes: Current Devices No Medical Equipment Recorded Medications Includes: Medications discussed during this encounter and other current Medications Current Medications (continue as prescribed) Spironolactone 25 MG Oral Tablet 12/12/2022 Provider : Diagnosis: Last Documented On 3 1:57PM By Kendra Paniagua ; [facility], [facility] Eliquis 5 MG Oral Tablet 12/11/2022 Provider: Diagnosis: Last Documented On 3 1:57PM By Kendra Paniagua ; [facility] Metoprolol Tartrate 100 MG Oral Tablet 12/11/2022 Pr ovider: Diagnosis: Last Documented On 3 1:57PM By Kendra Paniagua ; [facility], [facility] Potassium Chloride Blaire ER 10 MEQ Oral Tablet Ex tended Release 12/11/2022 Provider: Diagnosis: Last Documented On 3 1:57PM By Kendra Paniagua ; [facility], [facility] Atorvastatin Calcium 10 MG Oral Tablet 12/10/2022 Pr ovider: Diagnosis: Last Documented On 3 1:57PM By Kendra Paniagua ; [facility], [facility] Furosemide 40 MG Oral Tablet 12/10/2022 Provider: Diagnosis: Last Documented On 3 1:57PM By Kendra Paniagua ; [facility], [facility] Ozempic (0.25 or 0.5 MG/DOSE ) 2 MG/3ML Subcutaneous Solution Pen-injector 12/09/2022 Provider: Diagnosis: Last Documented On 3 1:57PM By Kendra Paniagua ; [facility], [facility] Metoprolol Tartrate 100 MG Oral Tablet 11/17/2022 Pr ovider: Diagnosis: Last Documented On 3 1:57PM By Kendra Paniagua ; [facility], [facility] tiZANidine HCl 4 MG Oral Tablet 11/10/2022 Provider: CARMEN KELLY MD Diagnosis: Last Documented On 3 1:57PM By Kendra Paniagua ; [facility], [facility] predniSONE 20 MG Oral Tablet 08/20/2022 Provider: Diagnosis: Last Documented On 3 1:57PM By Kendra Paniagua ; [facility], [facility] Medications Administered Includes: Administered Medications from this encounter No Administered Medications Recorded Vital Signs Includes: Vital Signs from this encounter Vital Name 07/28/2023 11:20A Height (in) 65 Weight (lb) 332 Body Mass Index 55.2 Body Surface Area 2.5 Note: [facility] Last Documented: On 07/28/2023 11:20A M ; [facility], [facility] Results Includes: Results discussed during this encounter No Results Recorded For Specified Dates History of Present Illness Includes: History of Present Illness from this encounter GIRMA Haas is a 63 year old male. - Allergy list reviewed - Problem list reviewed - Medication list reviewed - Previous history of new onset pain 07/20/2023 Injury is not work related or an automotive accident - Pain is constant (100% of the time) - Patient pain level from 1-10: 3 - Yes, previous treatment. Patient is a 63 year old male that is here today with complaints of pain in the LLF. He states on 07/20/2023 he sustained a dog bite to the LLF. He noticed after the injury he could not fully extend the LLF MPJ actively. He has been placed on antibiotics by Dr. Calix. He is here today for further evaluation. Social History Description Last Updated No caffeine use 12/30/2022 Last Documented On 4 11:20AM ; [facility], [facility] No recent change in diet 12/30/2022 Last Documented On 4 11:20AM ; [facility], [facility] Not a current smoker. 12/30/2022 Last Documented On 4 11:20AM ; [facility], [facility] Not exercising regularly 12/30/2022 Last Documented On 4 11:20AM ; [facility], [facility] Not using alcohol 12/30/2022 Last Documented On 4 11:20AM ; [facility], [facility] Not using drugs 12/30/2022 Last Documented On 4 11:20AM ; [facility], [facility] Tobacco non-user 12/30/2022 Last Documented On 4 11:20AM ; [facility], [facility] Smoking Status Unknown Procedures and Surgical History Includes: Procedures from this encounter Procedures Code Diagnosis Performing Provider Service L ocation Service Date use of tobacco assessment performed 1000F Last Documented On 4 11:21AM ; [facility] review of medications documented 1160F Last Documented On 4 11:21AM ; [facility] an X-ray was performed 59607 Last Documented On 4 12:47PM ; [facility] Medical History Includes: Medical History addressed during this encounter Description Last Updated Past surgical history non-contributory 0 12/30/2022 Last Documented On 4 11:20AM ; [facility] History of diabetes mellitus 12/30/2022 Last Documented On 4 11:20AM ; [facility] History of Heartburn / Acid Reflux 12/30 Last Documented On 4 11:20AM ; [facility] History of Hypertension 12/30/2022 Last Documented On 4 11:20AM ; [facility] History of Sleep Apnea 12/30/2022 Last Documented On 4 11:20AM ; [facility] Use of CPAP 12/30/2022 Last Documented On 4 11:20AM ; [facility] Family History Includes: Family History addressed during this encounter Description Last Updated Diabetes mellitus 12/30/2022 Last Documented On 4 11:20AM ; [facility] Review of Systems Includes: Review of Systems [...] Immunologic: No complaint of seasonal allergic reaction. Reviewed 07/28/23 The patient is awake alert oriented in time place and person. Has normal mood and affect. Is neatly dressed. Has normal gait and station. Pupils are equal and react to light normally. Eyes move normally. Mucous membranes are moist. The patient has no trouble with speech. Normal circulation. Normal sensation. No thenar or intrinsic atrophy. Patient cannot fully extend the LLF MPJ actively. No drainage of the wound. No fluctuance. Minimal erythema LLF MPJ. Mental Status Includes: Mental Status from this encounter Description No anxiety Functional Status Includes: Functional Status from this encounter No Functional Status Recorded Physical Exam Includes: Physical Exam from this encounter Allergies Includes: Active Allergies No Known Allergies Encounters Encounter Provider Location Date Check-In Time Check-Out Time Diagnosis Physician Specified Amarjit Akers MD [facility] 07/28/19 24 11:14AM 11:31AM Overweight Insurance Includes: Active Insurance Policies Plan Name Member ID Group # Subscriber Relationship Effect ketty Dates 1 - [facility] e/MEDICARE [id number] Richard Haas Self 4 - Unknown Clinical Notes Includes: Clinical Notes from this encounter * Progress note Date Encounter Last Documented by 07/28/2023 Physician Specified Last hailey colon on 08/07/2023; 4:52 PM, Amarjit Akers MD; [facility], [facility] Active Problems & Conditions - Joint Pain, Localized in the Left Shoulder - Pain in the Left Hand Only Chief Complaint The Chief Complaint is: L hand pain. Referred Here Referred by [facility]. History of Present Illness Richard Haas is a 63 year old male. - Allergy list reviewed - Problem list reviewed - Medication list reviewed - Previous history of new onset pain 07/20/2023 Injury is not work related or an automotive accident - Pain is constant (100% of the time) - Patient pain level from 1-10: 3 - Yes, previous treatment. Patient is a 63 year old male that is here today with complaints of pain in the LLF. He states on 07/20/2023 he sustained a dog bite to the LLF. He noticed after the injury he could not fully extend the LLF MPJ actively. He has been placed on antibiotics by Dr. Calix. He is here today for further evaluation. Current Medication - Atorvastatin Calcium 10 MG [...] Immunologic: No complaint of seasonal allergic reaction. Reviewed 07/28/23 The patient is awake alert oriented in time place and person. Has normal mood and affect. Is neatly dressed. Has normal gait and station. Pupils are equal and react to light normally. Eyes move normally. Mucous membranes are moist. The patient has no trouble with speech. Normal circulation. Normal sensation. No thenar or intrinsic atrophy. Patient cannot fully extend the LLF MPJ actively. No drainage of the wound. No fluctuance. Minimal erythema LLF MPJ. Physical Findings - Vitals taken 07/28/2023 11:20 am [facility] Height 65 in 60 - 80 Weight 332 lbs 123 - 215 Body Mass Index 55.2 kg/m2 Body Surface Area 2.5 m2 Tests Xray 2 views of the L hand taken in the office today are normal Assessment - Overweight Previous Tests Imaging: X-Ray: An X-ray was performed. Counseling/Education - Lose weight Plan I explained to the patient that I feel he has sustained an injury to the extensor tendon LLF. We discussed allowing the injection to resolve a little more and continuing antibiotics for the next week, and then scheduling for extensor tendon repair on 08/16/23. We will see him back in one week for wound recheck. We will schedule the patient for extensor tendon repair LLF under general anesthesia and will see him back postop. I have explained the risks, benefits, and alternatives to surgery. I have answered the patient's questions in detail. Practice Management Use of tobacco assessment performed Review of medications documented. Notes This dictation was done with voice recognition software and may contain errors and omissions. transcribed by Keiko Robison
--- OUTSIDE RECORDS SUMMARY | 2024-10-03 09:51 | XMS_ITS ---
Author Organization [facility] , [facility] Address [address] [place] [address] Phone Care Team Providers Care Higher Level Teaching Assistant Name Role Phone Alex SILVA, Rogelio Marie Unavailable [phone] Problems Includes: Active, inactive, and resolved Problems All Visits Onset Date Resolved Date Provider Condition S tatus Pain in the Left Hand Only 07/28/2023 Amarjit Akers MD Active Last Documented On 4 11:20AM ; [facility], [facility] Joint Pain, Localized in the Left Shoulder 12/30/2022 Rogelio Johnson MD Active Last Documented On 3 1:57PM ; [facility], [facility] Plan of Treatment Pending Tests Order Diagnosis Results Due Ordering P rovider Procedure/Tests Nerve Conduction Study 01/13/23 Rogelio Johnson MD Last Documented On 3 12:30PM ; [facility] Radiology - MRI MRI Shoulder Overweight 02/01/23 Rogelio Johnson MD Last Documented On 3 9:12AM ; [facility] Instructions to patient Lose weight Last Documented On 4 11:21AM ; [facility] Lose weight Last Documented On 4 10:23AM ; [facility], [facility] Lose weight Last Documented On 3 12:48PM ; [facility], [facility] Lose weight Last Documented On 3 2:52PM ; [facility], [facility] Lose weight Last Documented On 3 1:19PM ; [facility], [facility] Lose weight Last Documented On 3 3:37PM ; [facility], [facility] Assessments Includes: Assessments for all patient encounters Findings Encounter Date Overweight Follow Up with Rogelio weller MD 07/28/2023 Last Documented On 4 6:37PM ; [facility], [facility] Overweight Physician Specified with Amarjit Akers MD 07/28/2023 Last Documented On 4 4:52PM ; [facility] Overweight Follow Up with Varsha castellano PA-C 04/02/2023 Last Documented On 3 12:59PM ; [facility] Overweight Follow Up with Rogelio weller MD 01/18/2023 Last Documented On 3 9:12AM ; [facility] Overweight Physician Specified with Rogelio Johnson MD 12/30/2022 Last Documented On 3 12:30PM ; [facility], [facility] Instructions Includes: Instructions for all patient encounters Instructions to patient Lose weight Last Documented On 4 11:21AM ; [facility] Lose weight Last Documented On 4 10:23AM ; [facility] Lose weight Last Documented On 3 12:48PM ; [facility] Lose weight Last Documented On 3 2:52PM ; [facility] Lose weight Last Documented On 3 1:19PM ; [facility] Lose weight Last Documented On 3 3:37PM ; [facility], [facility] Medical Equipment - Implanted Devices Includes: Current and historical Devices No Medical Equipment Recorded Medications Includes: Current and historical Medications Current Medications (continue as prescribed) Spironolactone 25 MG Oral Tablet 12/12/2022 Provider : Diagnosis: Last Documented On 3 1:57PM By Kendra Paniagua ; [facility], [facility] Eliquis 5 MG Oral Tablet 12/11/2022 Provider: Diagnosis: Last Documented On 3 1:57PM By Kendra Paniagua ; [facility], [facility] Metoprolol Tartrate 100 MG Oral Tablet 12/11/2022 Pr ovider: Diagnosis: Last Documented On 3 1:57PM By Kendra Paniagua ; [facility], [facility] Potassium Chloride Blaire ER 10 MEQ Oral Tablet Ex tended Release 12/11/2022 Provider: Diagnosis: Last Documented On 3 1:57PM By Kendra Paniagua ; [facility] Atorvastatin Calcium 10 MG Oral Tablet 12/10/2022 Pr ovider: Diagnosis: Last Documented On 3 1:57PM By Kendra Paniagua ; [facility] Furosemide 40 MG Oral Tablet 12/10/2022 Provider: Diagnosis: Last Documented On 3 1:57PM By Kendra Paniagua ; [facility] Ozempic (0.25 or 0.5 MG/DOSE ) 2 MG/3ML Subcutaneous Solution Pen-injector 12/09/2022 Provider: Diagnosis: Last Documented On 3 1:57PM By Kendra Paniagua ; [facility] Metoprolol Tartrate 100 MG Oral Tablet 11/17/2022 Pr ovider: Diagnosis: Last Documented On 3 1:57PM By Kendra Paniagua ; [facility] tiZANidine HCl 4 MG Oral Tablet 11/10/2022 Provider: CARMEN KELLY MD Diagnosis: Last Documented On 3 1:57PM By Kendra Paniagua ; [facility] predniSONE 20 MG Oral Tablet 08/20/2022 Provider: Diagnosis: Last Documented On 3 1:57PM By Kendra Paniagua ; [facility] Medications Administered Includes: Administered Medications in patient's chart No Administered Medications Recorded Results Includes: Results from 10/04/2023 through 10/03/2024 No Results Recorded For Specified Dates History of Present Illness History of Present Illness not supported for this document type No History of Present Illness Recorded Social History Description Last Updated No caffeine use 12/30/2022 Last Documented On 3 12:30PM ; [facility] No recent change in diet 12/30/2022 Last Documented On 3 12:30PM ; [facility] Not a current smoker. 12/30/2022 Last Documented On 3 12:30PM ; [facility] Not exercising regularly 12/30/2022 Last Documented On 3 12:30PM ; [facility], [facility] Not using alcohol 12/30/2022 Last Documented On 3 12:30PM ; [facility], [facility] Not using drugs 12/30/2022 Last Documented On 3 12:30PM ; [facility] Tobacco non-user 12/30/2022 Last Documented On 3 12:30PM ; [facility] Smoking Status Unknown Medical History Includes: Medical History in patient's chart Description Last Updated Past surgical history non-contributory 0 12/30/2022 Last Documented On 3 12:30PM ; [facility], [facility] History of diabetes mellitus 12/30/2022 Last Documented On 3 12:30PM ; [facility], [facility] History of Heartburn / Acid Reflux 12/30 Last Documented On 3 12:30PM ; [facility] History of Hypertension 12/30/2022 Last Documented On 3 12:30PM ; [facility] History of Sleep Apnea 12/30/2022 Last Documented On 3 12:30PM ; [facility], [facility] Use of CPAP 12/30/2022 Last Documented On 3 12:30PM ; [facility], [facility] Family History Includes: Family History in patient's chart Description Last Updated Diabetes mellitus 12/30/2022 Last Documented On 3 12:30PM ; [facility], [facility] Review of Systems Review of Systems not supported for this document type No Review of Systems Recorded Mental Status Description No anxiety Functional Status No Functional Status Recorded Physical Exam Physical Exam not supported for this document type No Physical Exam Recorded Allergies Includes: Active, inactive, and resolved Allergies No Known Allergies Insurance Includes: Active Insurance Policies Plan Name Member ID Group # Subscriber Relationship Effect ketty Dates 1 - [facility] e/MEDICARE [id number] Richard Haas Self 4 - Unknown Clinical Notes Includes: Signed Clinical Notes starting from 05/21/2022 No Clinical Notes Recorded
--- OUTSIDE RECORDS SUMMARY | 2024-10-03 09:51 | XMS_ITS | Clinical Summary ---
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 He is got good response from the injections. We will continue to use these as needed symptomatically. We will repeat x-ray guided injection - Last Documented On 04/02/2023 12:59PM ; [facility] Instructions to patient Lose weight Last Documented On 3 12:48PM ; [facility] Assessments Includes: Assessments from this encounter Findings - Overweight - Last Documented On 04/02/2023 12:59PM ; [facility] Arthritis with labral tear - Last Documented On 04/02/2023 12:59PM ; [facility] Instructions Includes: Instructions from this encounter Instructions to patient Lose weight Last Documented On 3 12:48PM ; [facility] Medical Equipment - Implanted Devices Includes: Current Devices No Medical Equipment Recorded Medications Includes: Medications discussed during this encounter and other current Medications Current Medications (continue as prescribed) Spironolactone 25 MG Oral Tablet 12/12/2022 Provider : Diagnosis: Last Documented On 3 1:57PM By Kendra Paniagua ; [facility], [facility] Eliquis 5 MG Oral Tablet 12/11/2022 Provider: Diagnosis: Last Documented On 3 1:57PM By Kendra Paniagua ; [facility], [facility] Metoprolol Tartrate 100 MG Oral Tablet 12/11/2022 Pr ovider: Diagnosis: Last Documented On 3 1:57PM By Kendra Paniagua ; [facility], [facility] Potassium Chloride Blaire ER 10 MEQ Oral Tablet Ex tended Release 12/11/2022 Provider: Diagnosis: Last Documented On 3 1:57PM By Kendra Paniagua ; [facility] Atorvastatin Calcium 10 MG Oral Tablet 12/10/2022 Pr ovider: Diagnosis: Last Documented On 3 1:57PM By Kendra Paniagua ; [facility], [facility] Furosemide 40 MG Oral Tablet 12/10/2022 Provider: Diagnosis: Last Documented On 3 1:57PM By Kendra Paniagua ; [facility], [facility] Ozempic (0.25 or 0.5 MG/DOSE ) 2 MG/3ML Subcutaneous Solution Pen-injector 12/09/2022 Provider: Diagnosis: Last Documented On 3 1:57PM By Kendra Paniagua ; [facility], [facility] Metoprolol Tartrate 100 MG Oral Tablet 11/17/2022 Pr ovider: Diagnosis: Last Documented On 3 1:57PM By Kendra Paniagua ; [facility], [facility] tiZANidine HCl 4 MG Oral Tablet 11/10/2022 Provider: CARMEN KELLY MD Diagnosis: Last Documented On 3 1:57PM By Kendra Paniagua ; [facility], [facility] predniSONE 20 MG Oral Tablet 08/20/2022 Provider: Diagnosis: Last Documented On 3 1:57PM By Kendra Paniagua ; [facility] Medications Administered Includes: Administered Medications from this encounter No Administered Medications Recorded Vital Signs Includes: Vital Signs from this encounter Vital Name 04/02/2023 12:48P Height (in) 65 Weight (lb) 332 Body Mass Index 55.2 Body Surface Area 2.5 Note: hdv Last Documented: On 04/02/2023 12:48P M ; [facility] Results Includes: Results discussed during this encounter No Results Recorded For Specified Dates History of Present Illness Includes: History of Present Illness from this encounter HPI Richard Haas is a 62 year old male. - Allergy list reviewed - Problem list reviewed - Medication list reviewed - Previous history of new onset pain 7 months ago from unknown cause - Pain is constant (100% of the time) - Patient pain level from 1-10: 7 Pain is worse with lifting. Nothing makes the pain better - Yes, previous treatment. PCP - History of Physical Therapy Social History Description Last Updated No caffeine use 12/30/2022 Last Documented On 3 12:48PM ; [facility] No recent change in diet 12/30/2022 Last Documented On 3 12:48PM ; [facility] Not a current smoker. 12/30/2022 Last Documented On 3 12:48PM ; [facility] Not exercising regularly 12/30/2022 Last Documented On 3 12:48PM ; [facility] Not using alcohol 12/30/2022 Last Documented On 3 12:48PM ; [facility] Not using drugs 12/30/2022 Last Documented On 3 12:48PM ; [facility] Tobacco non-user 12/30/2022 Last Documented On 3 12:48PM ; [facility], [facility] Smoking Status Unknown Procedures and Surgical History Includes: Procedures from this encounter Procedures Code Diagnosis Performing Provider Service L ocation Service Date use of tobacco assessment performed 1000F Last Documented On 3 12:48PM ; [facility], [facility] review of medications documented 1160F Last Documented On 3 12:48PM ; [facility] an MRI was performed 37142 Last Documented On 3 12:48PM ; [facility] Medical History Includes: Medical History addressed during this encounter Description Last Updated Past surgical history non-contributory 0 12/30/2022 Last Documented On 3 12:48PM ; [facility], [facility] History of diabetes mellitus 12/30/2022 Last Documented On 3 12:48PM ; [facility] History of Heartburn / Acid Reflux 12/30 Last Documented On 3 12:48PM ; [facility] History of Hypertension 12/30/2022 Last Documented On 3 12:48PM ; [facility] History of Sleep Apnea 12/30/2022 Last Documented On 3 12:48PM ; [facility] Use of CPAP 12/30/2022 Last Documented On 3 12:48PM ; [facility] Family History Includes: Family History addressed during this encounter Description Last Updated Diabetes mellitus 12/30/2022 Last Documented On 3 12:48PM ; [facility] Review of Systems Includes: Review of [...] Check-In Time Check-Out Time Diagnosis Follow Up Varsha Islas PA-C [facility] 3 12:43PM 1:02PM Overweight Insurance Includes: Active Insurance Policies Plan Name Member ID Group # Subscriber Relationship Effect ketty Dates 1 - [facility] e/MEDICARE [id number] Richard Haas Self 4 - Unknown Clinical Notes Includes: Clinical Notes from this encounter * Progress note Date Encounter Last Documented by 04/02/2023 Follow Up Last documented on 04/02/2023; 12:59 PM, Varsha Islas PA-C; [facility] Active Problems & Conditions - Joint Pain, Localized in the Left Shoulder Chief Complaint The Chief Complaint is: Left shoulder pain. Referred Here Referred by. History of Present Illness Richard Haas is a 62 year old male. - Allergy list reviewed - Problem list reviewed - Medication list reviewed - Previous history of new onset pain 7 months ago from unknown cause - Pain is constant (100% of the time) - Patient pain level from 1-10: 7 Pain is worse with lifting. Nothing makes the pain better - Yes, previous treatment. PCP - History of Physical Therapy Current Medication - Atorvastatin Calcium 10 MG [...] allergic reaction. Physical Findings - Vitals taken 04/02/2023 12:48 pm hdv Height 65 in Weight 332 lbs Body Mass Index 55.2 kg/m2 Body Surface Area 2.5 m2 General Exam: The patient is awake and alert. No acute distress. Normal mood and affect for age. Well groomed and nourished Neuro: Sensation was intact to light touch over the extremity. Vascular: +2 radial pulses. No edema. Derm: No signs of active infection. No acute skin changes. Musculoskeletal: Normal gait and station. No muscle atrophy. No joint effusion. No muscle or bony deformity Assessment - Overweight Arthritis with labral tear Previous Tests Imaging: MRI Scan: An MRI was performed. Counseling/Education - Lose weight Plan He is doing well. He is got good response from the injections. We will continue to use these as needed symptomatically. We will repeat x-ray guided injection Notes This dictation was done with voice recognition software and may contain errors and omissions. Practice Management Use of tobacco assessment performed Review of medications documented.
--- NOTE | 2024-10-03 10:30 | US_ITS ---
FINAL REPORT TECHNIQUE: Limited sonographic imaging of the pelvis was obtained. CLINICAL HISTORY: Hematuria FINDINGS: Urinary bladder measures 4.9 cm x 3.29 cm. Urinary bladder volume is 42.97 mL. Bladder is incompletely distended. Ureteral jets are noted. IMPRESSION: Incompletely distended urinary bladder. Reviewed, Interpreted and Dictated by Mna Long MD Transcribed by Esperanza Ryan Authenticated and [facility]
== END 2024-10-03 23:59 | disposition home or self-care (01) ==
LOC: RAD 09:49
PROVIDERS: PCP Internal Medicine Adolescent Medicine; Visit Provider Urology
DX: N30.01 Acute cystitis with hematuria (principal)
CPT/HCPCS: 76857

== ENCOUNTER 2025-02-22 09:43 | Outpatient (CLI) | payer MEDICARE, SELFPAY ==
--- OUTSIDE RECORDS SUMMARY | 2025-02-22 09:46 | XMS_ITS | Referral Summary ---
Author Organization [facility] ([place], [place], [place], [place]) Address [address] [place] [address] Care Team Providers Care Environmental Program Manager Name Role Phone Unavailable Primary Care Provider Unavailabl e Social History Tobacco Use Types Packs/Day Years Used Date Smoking Tobacco: Never Assessed Food Insecurity Answer Date Recorded Food run out past 12 months Not on file 07/09 Food did not last past 12 months Not on file 07/30/2023 Employment Answer Date Recorded Help finding and keeping a job Not on file 0 07/30/2023 Family and Community Support Answer Jorge e Recorded Help with Day to Day Activities Not on file 07/30/2023 Feeling Lonely or Isolated Not on file 07/30 Educational Attainment Answer Date Dheeraj rded Speak language other than Sammarinese at home Not on file 07/30/2023 Want help with school or training Not on file 07/30/2023 Substance Use Answer Date Recorded Used prescription meds for non-medical reasons N ot on file 07/30/2023 Used illegal drugs past 12 months Not on file 07/30/2023 Sex and Gender Information Value Date Recorded Sex Assigned at Not on file Legal Sex Male 1:17 PM CDT Gender Identity Not on file Sexual Orientation Not on file Plan of Treatment Not on file Insurance [facility] DUAL COMPLETE MCR ADV
--- OUTSIDE RECORDS SUMMARY | 2025-02-22 09:46 | XMS_ITS | Clinical Summary ---
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
[2025-02-22 10:07] LABS: Hematocrit 39.2 % (42.0-52.0); Hemoglobin 12.6 g/dL (14.1-18.0); Immature Granulocytes % 0.5 %; Mean Corpuscular HGB Conc 32.1 g/dL (31.8-35.4); Mean Corpuscular Hemoglobin 27.9 pg (27.0-31.2); Mean Corpuscular Volume 86.9 fl (80-94); Nucleated Red Blood Cells % 0 %; Platelet Count 206 K/mm3 (142-424); Red Blood Count 4.51 M/mm3 (4.60-6.20); Red Cell Distribution Width-SD 47.3 fL; White Blood Count 7.9 K/mm3 (4.8-10.8)
[2025-02-22 10:35] LABS: Alanine Aminotransferase 13 U/L (12-78); Alkaline Phosphatase 102 U/L (38-126); Anion Gap 10.0 mEq/L (5-15); Aspartate Amino Transferase 19 U/L (17-59); Bilirubin,Direct 0.3 mg/dl (0.0-0.4); Bilirubin,Indirect 0.6 mg/dL (0.0-0.9); Bilirubin,Total 0.9 mg/dl (0.2-1.3); Bilirubin,Unconjugated 0.6 mg/dL (0.0-1.1); Blood Urea Nitrogen 19 mg/dl (9-20); Calcium 8.4 mg/dl (8.4-10.2); Carbon Dioxide 26 mmol/L (22.0-30.0); Chloride 106 mmol/L (98-107); Cholesterol 82 mg/dl (140-200); Creatinine,Serum 1.10 mg/dl (0.66-1.25); Estimated Glomerular Filt Rate 67 ml/min (>60); GFR (African American) 82 ML/MIN (>60); Glucose 84 mg/dl (74-100); HDL Cholesterol 36 mg/dl (40-60); Magnesium 1.8 mg/dl (1.6-2.3); Potassium 4.0 mmoL/L (3.5-5.1); Sodium 138 mmol/L (136-145); Total Protein,Serum 6.2 g/dl (6.3-8.2); Triglycerides 62 mg/dl (30-150)
[2025-02-22 10:46] LABS: Albumin Level 3.5 g/dl (3.5-5.0)
[2025-02-22 10:51] LABS: Free T4 (Free Thyroxine) 1.42 ng/dl (0.78-2.19)
[2025-02-22 11:05] LABS: Thyroid Stimulating Hormone 2.01 uIU/mL (0.465-4.68)
== END 2025-02-22 23:59 | disposition home or self-care (01) ==
LOC: LAB 09:44
PROVIDERS: PCP Internal Medicine Adolescent Medicine; Visit Provider Nurse Practitioner
DX: E78.5 Hyperlipidemia, unspecified (principal); R60.0 Localized edema; I48.20 Chronic atrial fibrillation, unspecified
CPT/HCPCS: 36415; 80048; 80061; 80076; 83735; 84439; 84443; 85025